=== PATIENT | male | born 1955 | race Caucasian/White ===

== ENCOUNTER 2017-02-01 23:40 | Inpatient (IN) | payer MEDICAID ==
[~2017-02-01] VITALS: Ht 177.8 cm; Wt 69.4 kg
[~2017-02-01 23:40] MED LIST: INSU100V19
[2017-02-01] MEDS ORDERED: SODIUM CHLORIDE 0.9% 1L BAG IV* STA (23:49)
--- NOTE | 2017-02-01 23:49 | ERD ---
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 The glucose was high in the emergency department glucometer. The EMS he has not been taking medication for a year and a half; he had history of diabetes mellitus According to MR when he was admitted in 2011, history of diabetes mellitus, dyslipidemia, hypertension, chronic kidney disease, CAD ROS All systems reviewed and are negative except as per history of present illness. Medications Home Meds Discontinued Reported Medications Insulin Glargine,Hum.rec.anlog (Lantus) 100 U/Ml Vial 05/23/11 Allergies Allergies: Coded Allergies: No Known Allergy (Unverified , 05/25/11) PMhx/Soc History of Surgery: No Anesthesia Reaction: No Hx Neurological Disorder: No Hx Respiratory Disorders: No Hx Cardiac Disorders: No Hx Psychiatric Problems: No Hx Miscellaneous Medical Probl: No Hx Alcohol Use: Yes (SOCIAL DRINKER ) Hx Substance Use: No Hx Tobacco Use: No Physical Exam Vitals Vital Signs Date Time Temp Pulse Resp B/P Pulse Ox O2 Delivery O2 Flow Rate FiO2 02/02/17 02:10 98.6 89 19 110/72 97 02/01/17 23:44 98.6 93 18 102/71 97 Physical Exam Const: No acute distress. Altered Head: Atraumatic. Eyes: Normal Conjunctiva. ENT: Normal External Ears, Nose and Mouth. Neck: Full range of motion. No meningismus. Resp: Clear to auscultation bilaterally. Cardio: Regular rate and rhythm. Abd: Soft, non distended, normal bowel sounds, non tender. Skin: No petechiae or rashes. Back: No midline or flank tenderness. Ext: No cyanosis, or edema. Neur: Awake. No focal deficit. Follow simple command Psych: Unable to obtain due to his condition Result Diagram: 02/02/17 0009 02/02/17 0009 Results 24 hrs Laboratory Tests Test 02/01/17 23:48 02/01/17 23:49 02/02/17 00:09 02/02/17 01:48 Bedside Glucose > 595mg/dL > 595mg/dL Blood Gas Specimen Source Blood arterial Arterial Blood Date Drawn 02/02/2017 12:10:46 AM Arterial Blood pH (Temp corrected) 6.940 Arterial Blood pCO2 (Temp correct) 12.5mmhg Arterial Blood pO2 (Temp corrected) 161.4mmHG Arterial Blood HCO3 2.6mmol/L Arterial Blood Base Excess -28.1mmol/L Arterial Blood Oxygen Saturation 98.2mmHG Ibrahima Test ACCEPTAB Arterial Blood Gas Puncture Site Right Radial Arterial Blood Carboxyhemoglobin 0.3% Arterial Blood Methemoglobin 0.4% Oxyhemoglobin Percent 97.5% Total Hemoglobin 16.8g/dl Blood Gas Temperature 37.0C Blood Gas Modality ROOM AIR FiO2 21.0% Blood Gas Critical Value Read Back Leida CHAND MD Blood Gas Notified Whom AA Blood Gas Notified Time 02/02/2017 12:22:28 AM White Blood Count 27.610^3/ul Red Blood Count 5.6410^6/ul Hemoglobin 17.1g/dl Hematocrit 60.3% Mean Corpuscular Volume 106.9fl Mean Corpuscular Hemoglobin 30.3pg Mean Corpuscular Hemoglobin Concent 28.4g/dl Red Cell Distribution Width 12.3% Platelet Count 46208^3/UL Mean Platelet Volume 11.8fl Neutrophils % 81.0% Lymphocytes % 8.5% Monocytes % 5.4% Eosinophils % 0.1% Basophils % 0.8% Nucleated Red Blood Cells % 0.0/100WBC Neutrophils # 22.410^3/ul Lymphocytes # 2.310^3/ul Monocytes # 1.510^3/ul Eosinophils # 0.010^3/ul Basophils # 0.210^3/ul Nucleated Red Blood Cells # 0.010^3/ul Pathologist Review (Hematology) YES Prothrombin Time 16.5Sec Prothrombin Time Ratio 1.3 INR International Normalized Ratio 1.31 Activated Partial Thromboplast Time 42.2Sec Sodium Level 138mmol/L Potassium Level 4.5mmol/L Chloride Level 92mmol/L Carbon Dioxide Level < 5mmol/L Anion Gap 46 Blood Urea Nitrogen 39mg/dl Creatinine 2.52mg/dl Glucose Level 1035mg/dl Lactic Acid Level 6.5mmol/L Calcium Level 9.2mg/dl Total Bilirubin 0.4mg/dl Direct Bilirubin 0.00mg/dl Indirect Bilirubin 0.4mg/dl Aspartate Amino Transf (AST/SGOT) 56IU/L Alanine Aminotransferase (ALT/SGPT) 71IU/L Alkaline Phosphatase 155IU/L Troponin I 0.208ng/ml Total Protein 7.9g/dl Albumin 4.2g/dl Globulin 3.70g/dl Albumin/Globulin Ratio 1.13 Test 02/02/17 02:54 02/02/17 03:38 Bedside Glucose > 595mg/dL Lactic Acid Level 3.2mmol/L Current Medications Medications (Trade) Dose Ordered Sig/Sergey Route PRN Reason Start Time Stop Time Status Last Admin Dose Admin Sodium Chloride 2020 ml 2,020 ml BOLUS OVER 2 HOURS STAT IV* 02/01/17 23:49 02/01/17 23:50 DC 02/02/17 00:06 Insulin Human Regular/Sodium Chloride (Novolin-R/NS) 100 ml @ 0 mls/hr TITRATE STAT IV 02/02/17 00:25 02/02/17 00:26 DC 02/02/17 02:11 Sodium Bicarbonate 50 ml 50 ml ONCE STAT IV 02/02/17 00:25 02/02/17 00:27 DC 02/02/17 03:39 Vancomycin HCl 250 ml @ 125 mls/hr ONCE IVPB 02/02/17 02:00 02/02/17 03:59 DC 02/02/17 02:00 Meropenem/Sodium Chloride (Merrem 500mg/50 ml(Pmx)) 50 ml @ 100 mls/hr ONCE STAT IVPB 02/02/17 02:00 02/02/17 02:29 DC 02/02/17 02:23 Ondansetron HCl (Zofran Inj) 4 mg ONCE ONCE IV 02/02/17 02:51 02/02/17 02:52 DC 02/02/17 03:22 Ondansetron HCl 4 mg 4 mg STK-MED ONCE .ROUTE 02/02/17 02:50 02/02/17 02:51 DC Sodium Chloride (NS) 1,000 ml @ 1,000 mls/hr Q1H ONCE IV 02/02/17 04:30 02/02/17 05:29 DC 02/02/17 04:21 Procedures/[place] [id number] Radiology Main Line: [phone] DIAGNOSTIC IMAGING REPORT Patient: BETHANIE CLARK : 1955 Age: 61 Sex: M MR #: [id number] DOS: 02/01/17 2349 Ordering MD: JER CHAND MD Location: E/R Room/Bed: PROCEDURE: XR Chest. CLINICAL INDICATION: Possible sepsis. TECHNIQUE: Single frontal view of the chest. COMPARISON: None. FINDINGS: Cardiomegaly. Atherosclerotic calcifications in the thoracic aorta. The lungs are clear. No signs of pleural fluid or pneumothorax are seen. The osseous structures and soft tissues are unremarkable. IMPRESSION: No evidence for active cardiopulmonary disease. RPTAT: [facility] Physician Christal Date Time Electronically viewed and signed by Physician Christal on 02/02/2017 02:52 RS/ CC: JER CHAND MD [place] [address] Radiology Main Line: [phone] DIAGNOSTIC IMAGING REPORT Patient: BETHANIE CLARK : 1955 Age: 61 Sex: M MR #: [id number] DOS: 02/01/17 2349 Ordering MD: JER CHAND MD Location: E/R Room/Bed: PROCEDURE: CT brain without contrast. CLINICAL INDICATION: Altered mental status. TECHNIQUE: CT scan of the brain was performed on a multi-detector high- resolution CT scanner. Contiguous axial images were obtained from the skull base to the vertex without intravenous contrast. Coronal and sagittal reformatted images were also obtained. Images were reviewed on the PACS workstation. DICOM images are available. One or more of the following dose reduction techniques were used: - Automated exposure control. - Adjustment of the mA and/or kV according to patient size. - Use of iterative reconstruction technique. Exam CTD/vol = 40.63 mGy. Total exam DLP = 990.31 mGy-cm. COMPARISON: None. FINDINGS: The ventricles and cortical sulci are prominent consistent with mild age related volume loss. There are no areas of abnormal attenuation within the brain parenchyma. There is no mass effect or midline shift. There is no intracranial hemorrhage or abnormal extra-axial collection. There are atherosclerotic calcifications within bilateral distal internal carotid arteries. The calvarium is intact. There is no evidence of fracture. Visualized paranasal sinuses and mastoid air cells are clear. IMPRESSION: No acute intracranial abnormality identified. Mild age related volume loss. Cerebral atherosclerosis. .Jose Carlos Roman MD, Date Time Electronically viewed and signed by .Jose Carlos Roman MD, MD on 02/02/2017 03:17 .T/ CC: JER CHAND MD EKG: Read by emergency physician Rate/Rhythm: Normal Sinus Rhythm 94 beats/min QRS, ST, T-waves: No ST elevation, no T inversion, prolong QT Impression: Abnormal EKG MEDICAL MAKING DECISION: The patient is a 61-year-old male, presenting with acute DKA, acute encephalopathy, acute septic shock, acute troponin elevation, acute on chronic kidney disease. He was treated with normosaline 30 mL/kg IV, vancomycin IV, meropenem IV for acute severe sepsis, 1 L normal saline and insulin drip at 0.1 U/kg/h and 1 amp of sodium bicarb IV for acute DKA.. Elevated trop is most likely due to acute on chronic kidney dz and acute septic shock. The differential diagnoses for acute elevated troponin considered include but are not limited to acute coronary syndrome, acute myocardial infarction, pericarditis, pulmonary embolism, aortic dissection, pneumonia, pleural effusion , pneumothorax, GERD, chest wall pain. The differential diagnoses for acute encephalopathy considered include but are not limited to medication non-compliance, alcohol intoxication or withdrawal, drug intoxication or withdrawal, endocrine disorder, trauma, CVA, tumor, metabolic encephalopathy, septic encephalopathy. Admit MDM: Patient's infectious symptoms have not stabilized and the patient is at risk of rapid decompensation. The patient will be admitted for careful hydration, antibiotic therapy, and infectious source control. Severe Sepsis criteria: Infectious source: unknown End organ damage indicated by: Lactate > 2.0 mmol/L Sepsis Management: Time of recognition of severe sepsis/septic shock: 2 am Within 3 hours of recognition: Blood cultures x 2 before broad-spectrum antibiotics: Yes 30 ml/kg NS bolus completed Initial lactate 6.5 Repeat lactate not indicated as initial lactate < 2.0 Septic Shock Assessment: Any lactic acid > 4.0 yes Persistent hypotension (SBP < 90 or 40 mmHg drop, MAP < 65) despite 30 mL/kg IV fluid bolusno Volume Re-assessment for Septic Shock (post 30 ml/kg bolus): Temp98.6, BP110/72, HR89, RR19, Pox97% Heart regular rate & rhythm Lungs no crackles Skin Warm & dry Cap Refill less than 2 seconds Peripheral pulses radially present Persistent Hypotension Treatment: Comfort care no Central line na Vasopressor started na I considered further perfusion assessment with CVP measurement, SCVO2, bedside ultrasound volume assessment, passive leg raise, trial of further fluid bolus. And proceeded withIVF Critical Care: Critical care time 35 minutes excluding billable procedures Emergent fluid management while maintaining close respiratory support. Provision of immediate and broad-spectrum antibiotic therapy. Simultaneous assessment for possible sources in order to direct targeted therapy. Consideration for invasive and chemical support to prevent cardiopulmonary collapse. Departure Diagnosis: Primary Impression: DKA (diabetic ketoacidoses) Additional Impressions: Septic shock Encephalopathy acute Elevated troponin Acute on chronic kidney failure Abnormal LFTs Condition: Critical Comments I discussed the findings with the patient. I discussed the patient with the hospitalist Dr. Willis who was made aware of the lab, the treatment, the patient condition. The patient is admitted to ICU at 4:20 am Disclaimer: Inadvertent spelling and grammatical errors are likely due to EHR/ dictation software use and do not reflect on the overall quality of patient care. Also, please note that the electronic time recorded on this note does not necessarily reflect the actual time of the patient encounter. JER CHAND MD Feb 01, 2017 23:48
[2017-02-02] MEDS ORDERED: INSULIN HUMAN REGULAR 100 UNIT in SOD CHLORIDE 0.9% 99 ML IV STA (00:25)
[2017-02-02] MEDS ORDERED: NA BICARBONATE 8.4% 50 ML SYG IV STA (00:25)
[2017-02-02 00:45] LABS: Allen Test ACCEPTAB; Arterial Base Excess -28.1 mmol/L (-3.0-3); Arterial COHb 0.3 % (0.0-3.0); Arterial Fraction of Oxyhgb 97.5 % (93.0-99.0); Arterial HCO3 2.6 mmol/L (22.0-26.0); Arterial MetHb 0.4 % (0.0-1.5); Arterial Total Hemglobin 16.8 g/dl (12.0-18.0); MODE ROOM AIR
[2017-02-02 00:59] LABS: INR 1.31; PROTIME 16.5 Sec (11.9-14.9); PT RATIO 1.3
[2017-02-02 01:00] LABS: PARTIAL THROMBOPLASTIN TIME 42.2 Sec (25.0-35.0)
[2017-02-02 01:40] LABS: ABNORMAL IP MESSAGE 1; BASOPHIL # 0.2 10^3/ul (0.0-0.1); BASOPHILS % 0.8 % (0.0-2.0); EOSINOPHILS % 0.1 % (0.0-7.0); HEMATOCRIT 60.3 % (42.0-52.0); HEMOGLOBIN 17.1 g/dl (14.0-18.0); LYMPHOCYTES # 2.3 10^3/ul (0.8-2.9); LYMPHOCYTES % 8.5 % (15.0-51.0); MEAN CORPUSCULAR HEMOGLOBIN 30.3 pg (29.0-33.0); MEAN CORPUSCULAR HGB CONC 28.4 g/dl (32.0-37.0); MEAN CORPUSCULAR VOLUME 106.9 fl (82.0-101.0); MEAN PLATELET VOLUME 11.8 fl (7.4-10.4); MONOCYTE # 1.5 10^3/ul (0.3-0.9); MONOCYTES % 5.4 % (0.0-11.0); NEUTROPHIL # 22.4 10^3/ul (1.6-7.5); PLATELET COUNT 273 10^3/UL (140-415); POSITIVE DIFF @See below; RED BLOOD COUNT 5.64 10^6/ul (4.70-6.10); RED CELL DISTRIBUTION WIDTH 12.3 % (11.5-14.5); WHITE BLOOD COUNT 27.6 10^3/ul (4.8-10.8)
[2017-02-02 01:47] LABS: PATH REVIEW? YES
[2017-02-02] MEDS ORDERED: MEROPENEM 500MG/50 ML (PMX) 50 ML IVPB STA (02:00)
[2017-02-02] MEDS ORDERED: VANCOMYCIN 1 GM (PMX) 250 ML IVPB SCH (02:00)
[2017-02-02 02:06] LABS: ALANINE AMINOTRANSFERASE 71 IU/L (13-69); ALBUMIN 4.2 g/dl (3.3-4.9); ALBUMIN/GLOBULIN RATIO 1.13; ALKALINE PHOSPHATASE 155 IU/L (42-121); ASPARTATE AMINO TRANSFERASE 56 IU/L (15-46); BILIRUBIN,INDIRECT 0.4 mg/dl (0-1.1); BILIRUBIN,TOTAL 0.4 mg/dl (0.2-1.3); BLOOD UREA NITROGEN 39 mg/dl (7-20); CALCIUM 9.2 mg/dl (8.4-10.2); CHLORIDE 92 mmol/L (97-110); POTASSIUM 4.5 mmol/L (3.5-5.1); SODIUM 138 mmol/L (135-144); TOTAL PROTEIN 7.9 g/dl (6.1-8.1)
[2017-02-02] MEDS ORDERED: ONDANSETRON 4 MG INJ ONE (02:50)
[2017-02-02 02:51] LABS: ANION GAP 46 (8-16); CARBON DIOXIDE < 5 mmol/L (21-31)
[2017-02-02] MEDS ORDERED: ONDANSETRON 4 MG INJ IV ONE (02:51)
--- NOTE | 2017-02-02 02:53 | RADRPT ---
PROCEDURE: XR Chest. CLINICAL INDICATION: Possible sepsis. TECHNIQUE: Single frontal view of the chest. COMPARISON: None. FINDINGS: Cardiomegaly. Atherosclerotic calcifications in the thoracic aorta. The lungs are clear. No signs of pleural fluid or pneumothorax are seen. The osseous structures and soft tissues are unremarkable. IMPRESSION: No evidence for active cardiopulmonary disease. RPTAT: [facility] Physician Christal Date Time Electronically viewed and signed by Physician Christal on 02/02/2017 02:52 RS/
--- NOTE | 2017-02-02 03:18 | RADRPT ---
PROCEDURE: CT brain without contrast. CLINICAL INDICATION: Altered mental status. TECHNIQUE: CT scan of the brain was performed on a multi-detector high-resolution CT scanner. Co ntiguous axial images were obtained from the skull base to the vertex without intravenous contrast. Coronal and sagittal reformatted images were also obtained. Images were reviewed on the PACS works [employer]. DICOM images are available. One or more of the following dose reduction techniques were used: - Automated exposure control. - Adjustment of the mA and/or kV according to patient size. - Use of iterative reconstruction technique. Exam CTD/vol = 40.63 mGy. Total exam DLP = 990.31 mGy-cm. COMPARISON: None. FINDINGS: The ventricles and cortical sulci are prominent consistent with mild age related volume loss. There are no areas of abnormal attenuation within the brain parenchyma. There is no mass effect or midli ne shift. There is no intracranial hemorrhage or abnormal extra-axial collection. There are atheros clerotic calcifications within bilateral distal internal carotid arteries. The calvarium is intact. There is no evidence of fracture. Visualized paranasal sinuses and mastoi d air cells are clear. IMPRESSION: No acute intracranial abnormality identified. Mild age related volume loss. Cerebral atherosclerosis. .Jose Carlos Roman MD, Date Time Electronically viewed and signed by .Jose Carlos Roman MD, MD on 02/02/2017 03:17 .T/
[2017-02-02 04:14] LABS: CREATININE 2.52 mg/dl (0.61-1.24)
[2017-02-02] MEDS ORDERED: SOD CHLORIDE 0.9% 1,000 ML IV ONE (04:30)
[2017-02-02 04:33] LABS: GLUCOSE 1035 mg/dl (70-220); TROPONIN-I 0.208 ng/ml (0.00-0.12)
[2017-02-02] MEDS ORDERED: SOD CHLORIDE 0.9% 1,000 ML IV SCH (07:16)
[2017-02-02] MEDS: ACCU-CHEK XX SCH ×17 (07:30→23:42)
[2017-02-02] MEDS ORDERED: ONDANSETRON 4 MG INJ IV PRN (07:30)
[2017-02-02] MEDS ORDERED: DEXTROSE 50% 50 ML SYRINGE IV PRN ×2 (07:30)
[2017-02-02] MEDS ORDERED: morphine 2 MG INJ IV PRN (07:30)
--- NOTE | 2017-02-02 07:34 | HP ---
Date/Time of Note Date/Time of Note DATE: 02/02/17 TIME: 07:24 Assessment/Plan VTE Prophylaxis VTE Prophylaxis Intervention: heparin Assessment/Plan Assessment/Plan 1. DKA -Continue insulin was DKA protocol -Admit to ICU -IV fluid and electrolytes replacement as needed -Endocrine consult 2. Presumed acute kidney injury -Continue IV fluids -Obtain renal ultrasound, urine electrolytes and nephrology consult 3. Severe anion gap metabolic acidosis See #1 and #2- 4. SIRS, with leukocytosis and tachycardia: -Chest x-ray is negative. Urinalysis pending -Obtain urine culture and blood culture -IV antibiotic 5. Positive troponin -Likely demand ischemia from DKA, and 2/2 possible underlying sepsis -Trend troponin -2D echo -Cardiology consult -Supplemental oxygen, aspirin with as needed nitro morphine. Blood pressure is on the lower side to allow beta-collette and given abnormal LFTs, no statin at this time 6. Elevated transaminases -Obtain RUQ ultrasound HPI/ROS Admit Date/Time Admit Date/Time Hx of Present Illness This is a 61-year-old male with a history of insulin-dependent diabetes who presented to the ER for generalized weakness and altered mentation. Symptoms have been progressively getting worse over the past several days. Patient lives with his brother who called to have the patient brought to the ER. Patient is somehow lethargic but is able to provide history slowly. He said after he got laid off from work a year and half ago he was not able to obtain his medications because of insurance reason. As a result, he has not been taking any diabetic medication for a year and half. When he presented to the ER, he was even in severe DKA. His blood glucose was over thousand, bicarb < 5, anion gap 46, BUN 39, creatinine 2.52, WBC 27.6 and elevated transaminases. His first troponin was elevated at 0.208. EKG without ST elevation or depression. Patient has been started on a DKA protocol and awaiting admission to ICU. PMH/Family/Social Social History Smoking Status: Unknown if ever smoked Exam/Review of Systems Vital Signs Vitals Vital Signs Date Time Temp Pulse Resp B/P Pulse Ox O2 Delivery O2 Flow Rate FiO2 02/02/17 06:42 Nasal Cannula 2 02/02/17 06:00 98.9 110 25 94/48 98 Exam Constitutional: other (Appears tired. Speaking slowly.) Head: atraumatic, normocephalic Eyes: EOMI, PERRL Respiratory: clear to auscultation, normal air movement Cardiovascular: other (Tachycardic with regular rhythm) Gastrointestinal: non-tender, soft Extremities: normal pulses Labs Result Diagram: 02/02/17802/02/178 Medications Medications Current Medications Ondansetron HCl (Zofran Inj) 4 mg Q6H PRN IV NAUSEA AND/OR VOMITING; Start at 07:30; Status UNV Morphine Sulfate (morphine) 2 mg Q4H PRN IV PAIN LEVEL 7-10; Start 02/02/17 at 07:30; Status UNV Famotidine (Pepcid Iv) 20 mg Q12 IV ; Start 02/02/17 at 09:00; Status UNV Dextrose (D50w Syringe) 50 ml Q15M PRN IV For BS 50 or less; Start 02/02/17 at 07:30; Status UNV Dextrose 25 ml 25 ml Q15M PRN IV BS between 50-70; Start 02/02/17 at 07:30; Status UNV Sodium Chloride 1,000 ml @ 1,000 mls/hr Q1H IV ; Start 02/02/17 at 07:16; Stop 02/02/17 at 08:15; Status UNV Lactated Ringer's 1,000 ml @ 1,000 mls/hr Q1H IV ; Start 02/02/17 at 08:16; Stop 02/02/17 at 09:15; Status UNV Potassium Chloride/Sodium Chloride (KCl/NS) 1,010 ml @ 500 mls/hr Q2H2M IV ; Start 02/02/17 at 09:16; Stop 02/02/17 at 11:15; Status UNV Diagnostic Test (Pha) (Accu-Chek) 1 ea Q1H XX ; Start 02/02/17 at 07:30; Status UNV Aspirin (Halfprin) 81 mg DAILY PO ; Start 02/02/17 at 09:00; Status UNV Atorvastatin Calcium (Lipitor) 40 mg QHS PO ; Start 02/02/17 at 21:00; Status UNV MARA MENDES MD Feb 02, 2017 07:34
[2017-02-02] MEDS ORDERED: SOD CHLORIDE 0.9% 1,000 ML IV STA (07:53)
[2017-02-02] MEDS ORDERED: LACTATED RINGER'S 1,000 ML IV SCH (08:16)
[2017-02-02] MEDS ORDERED: POTASSIUM CHLORIDE 20 MEQ in SOD CHLORIDE 0.9% 1,000 ML IV SCH (09:16)
[2017-02-02 09:39] LABS: BASOPHILS % 0.3 % (0.0-2.0); HEMATOCRIT 43.9 % (42.0-52.0); HEMOGLOBIN 14.2 g/dl (14.0-18.0); LYMPHOCYTES # 1.6 10^3/ul (0.8-2.9); LYMPHOCYTES % 13.9 % (15.0-51.0); MEAN CORPUSCULAR HGB CONC 32.3 g/dl (32.0-37.0); MEAN CORPUSCULAR VOLUME 92.6 fl (82.0-101.0); MONOCYTE # 0.1 10^3/ul (0.3-0.9); NEUTROPHIL # 9.6 10^3/ul (1.6-7.5); NEUTROPHILS % 82.4 % (39.0-77.0); PLATELET COUNT 190 10^3/UL (140-415); RED BLOOD COUNT 4.74 10^6/ul (4.70-6.10); RED CELL DISTRIBUTION WIDTH 12.1 % (11.5-14.5); WHITE BLOOD COUNT 11.6 10^3/ul (4.8-10.8)
[2017-02-02] MEDS: CEFEPIME 1GM/50 ML (PMX) 50 ML IVPB SCH (09:45)
[2017-02-02 10:00] LABS: CHOL/HDL RATIO 7.7 RATIO
[2017-02-02 10:09] LABS: ALBUMIN 3.1 g/dl (3.3-4.9); ALBUMIN/GLOBULIN RATIO 1.06; BILIRUBIN,INDIRECT 0.6 mg/dl (0-1.1); BILIRUBIN,TOTAL 0.6 mg/dl (0.2-1.3); CALCIUM 8.4 mg/dl (8.4-10.2); CREATININE 2.08 mg/dl (0.61-1.24); MAGNESIUM 2.4 mg/dl (1.7-2.5); PHOSPHORUS 3.1 mg/dl (2.5-4.9); POTASSIUM 3.2 mmol/L (3.5-5.1)
[2017-02-02 10:15] LABS: CK-MB 4.72 ng/ml (0.0-2.4); TROPONIN-I 0.257 ng/ml (0.00-0.12)
[2017-02-02] MEDS: FAMOTIDINE 20 MG INJ IV SCH (10:43)
[2017-02-02] MEDS: ALBUTEROL/IPRATROPIUM (NEB) 3 ML AMP NEB SCH ×5 (11:35→21:45)
[2017-02-02] MEDS: ASPIRIN (EC) 81 MG TAB PO SCH (13:18)
[2017-02-02 14:09] LABS: CALCIUM 7.6 mg/dl (8.4-10.2); CREATININE 1.43 mg/dl (0.61-1.24)
--- NOTE | 2017-02-02 14:12 | RADRPT ---
Echocardiogram Report Patient Name: BETHANIE CLARK Gender: Male Date: 1955 Study Date: 02-Feb-2017 Wood Room Hand: Isela RUST Location: [facility] Ref. Physician: MARA MENDES Quality: Adequate Procedures: Transthoracic echocardiogram with complete 2D, M-Mode, and doppler examination. Indications: Positive Troponin. 2D/M Mode Doppler Measurement Value Normal Ranges Measurement Value Normal Ranges LVIDd 2D 3.0 3.5 - 5.6 cm AV Peak Jose Antonio 1.2 m/sec LVIDs 2D 2.4 2.1 - 4.1 cm AV Peak PG 6.0 mmHg FS 2D 20.1 % LVOT Peak Jose Antonio 1.0 m/sec LVPWd 2D 1.3 0.6 - 1.1 cm LVOT Peak PG 4.0 mmHg IVSd 2D 1.3 0.6 - 1.1 cm MV E Peak Jose Antonio 1.1 m/sec IVS/LVPW 2D 1.0 MV Decel Time 106 msec AoR Diam 2D 2.8 2.0 - 3.7 cm TR Peak Jose Antonio 1.9 m/sec LA/Ao 2D 1 0 - 1 TR Peak PG 15.0 mmHg EDV 2D 26.5 cm3 RVSP 30.0 mmHg ESV 2D 13.5 cm3 LA Dimen 2D 3.6 2.3 - 4.0 cm Findings Left Ventricle: Lower limits of normal systolic function. Normal left ventricular cavity size. Mild concentric left ventricular hypertrophy. Ejection fraction is visually estimated at 50 %. Abnormal Diastolic Function. Right Ventricle: Normal right ventricular size. Normal right ventricular systolic function. Left Atrium: The left atrium is normal in size. Right Atrium: The right atrium is normal in size. Mitral Valve: Mild mitral leaflet calcification. Mild mitral annular calcification. Trace mitral regurgitation. Aortic Valve: No significant aortic stenosis. Aortic cusps appear mildly calcified. Trace aortic valve regurgitation. Tricuspid Valve: Normal appearance and function of the tricuspid valve with trace physiologic regurgitation. Estimated peak PA systolic pressure 30 mmHg. Pulmonic Valve: Pulmonic valve not well visualized. There is trace pulmonic regurgitation. Pericardium: Normal pericardium with no significant pericardial effusion. Aorta: Normal aortic root. IVC: Dilated IVC without respiratory collapse consistent with elevated right atrial pressure. Conclusions 1.Lower limits of normal systolic function. Normal left ventricular cavity size. Mild concentric left ventricular hypertrophy. Ejection fraction is visually estimated at 50 %. Abnormal Diastolic Function. 2.Normal right ventricular size. Normal right ventricular systolic function. 3.The left atrium is normal in size. 4.The right atrium is normal in size. 5.No significant valvular stenosis or regurgitation seen. 6.Normal pericardium with no significant pericardial effusion. Electronically Signed By: Jose Miguel Ridley 02-Feb-2017 14:10:57 -0800 Patient Name: BETHANIE CLARK Study Date: 02-Feb-2017 [id number]
[2017-02-02 14:18] LABS: POTASSIUM 2.8 mmol/L (3.5-5.1)
[2017-02-02 14:30] VITALS: TEMP 98.7
--- NOTE | 2017-02-02 15:22 | PN ---
Date/Time of Note Date/Time of Note DATE: 02/02/17 TIME: 15:17 Assessment/Plan VTE Prophylaxis VTE Prophylaxis Intervention: heparin Assessment/Plan Chief Complaint/Hosp Course S: Patient still on insulin drip, somewhat lethargic, but sugars have improved, in the 250-300 range now. O: VS (see below) PE: Constitutional: Lying in bed, lethargic, no acute distress Head: atraumatic, normocephalic Eyes: EOMI, PERRL Respiratory: clear to auscultation, normal air movement Cardiovascular: other (Tachycardic with regular rhythm) Gastrointestinal: non-tender, soft Extremities: normal pulses Assessment/Plan: 61-year-old male presenting with: 1. DKA -sugars down to the 250-300 range. Still with slightly elevated anion gap, on IV fluids and IV insulin -Continue insulin with DKA protocol, ICU -IV fluid and electrolytes replacement as needed -Consider endocrine consult 2. Presumed acute kidney injury -slowly improving. -Continue IV fluids -Follow-up renal ultrasound, urine electrolytes and nephrology consult 3. Severe anion gap metabolic acidosis See #1 and #2- -resolving now, continue to monitor BMP, aggressive IV fluid rehydration 4. SIRS, with leukocytosis and tachycardia: Possibly secondary to infection versus DKA reactive stay -Chest x-ray is negative. Urinalysis pending -Follow-up urine culture and blood culture -IV antibiotic for now until we get negative cultures back 5. Positive troponin -Likely demand ischemia from DKA, and 2/2 possible underlying sepsis -Trend troponin -Follow-up 2D echo -Consider cardiology consult -Supplemental oxygen, aspirin with as needed nitro morphine. Blood pressure is on the lower side to allow beta-collette and given abnormal LFTs, no statin at this time 6. Elevated transaminases -Follow-up RUQ ultrasound Critical care time spent on patient care today equals 45 minutes. Problems: Exam/Review of Systems Vital Signs Vitals Vital Signs Date Time Temp Pulse Resp B/P Pulse Ox O2 Delivery O2 Flow Rate FiO2 02/02/17 14:30 98.7 131 20 100/69 98 Room Air 02/02/17 13:43 21 02/02/17 06:42 2 Results Result Diagram: 02/02/17 0902 02/02/17 1340 Results 24 hrs Laboratory Tests Test 02/01/17 23:48 02/01/17 23:49 02/02/17 00:09 02/02/17 01:48 Bedside Glucose > 595 *H > 595 *H Blood Gas Specimen Source Blood arterial Arterial Blood Date Drawn 02/02/2017 12:10:46 AM Arterial Blood pH (Temp corrected) 6.940 *L Arterial Blood pCO2 (Temp correct) 12.5 L Arterial Blood pO2 (Temp corrected) 161.4 H Arterial Blood HCO3 2.6 *L Arterial Blood Base Excess -28.1 L Arterial Blood Oxygen Saturation 98.2 H Ibrahima Test ACCEPTAB Arterial Blood Gas Puncture Site Right Radial Arterial Blood Carboxyhemoglobin 0.3 Arterial Blood Methemoglobin 0.4 Oxyhemoglobin Percent 97.5 Total Hemoglobin 16.8 Blood Gas Temperature 37.0 Blood Gas Modality ROOM AIR FiO2 21.0 Blood Gas Critical Value Read Back Leida CHAND MD Blood Gas Notified Whom AA Blood Gas Notified Time 02/02/2017 12:22:28 AM White Blood Count 27.6 H Red Blood Count 5.64 Hemoglobin 17.1 Hematocrit 60.3 H Mean Corpuscular Volume 106.9 H Mean Corpuscular Hemoglobin 30.3 Mean Corpuscular Hemoglobin Concent 28.4 L Red Cell Distribution Width 12.3 Platelet Count 273 Mean Platelet Volume 11.8 H Neutrophils % 81.0 H Lymphocytes % 8.5 L Monocytes % 5.4 Eosinophils % 0.1 Basophils % 0.8 Nucleated Red Blood Cells % 0.0 Neutrophils # 22.4 H Lymphocytes # 2.3 Monocytes # 1.5 H Eosinophils # 0.0 Basophils # 0.2 H Nucleated Red Blood Cells # 0.0 Pathologist Review (Hematology) YES Prothrombin Time 16.5 H Prothrombin Time Ratio 1.3 INR International Normalized Ratio 1.31 Activated Partial Thromboplast Time 42.2 H Sodium Level 138 Potassium Level 4.5 Chloride Level 92 L Carbon Dioxide Level < 5 *L Anion Gap 46 H Blood Urea Nitrogen 39 H Creatinine 2.52 H Glucose Level 1035 *H Lactic Acid Level 6.5 *H Calcium Level 9.2 Total Bilirubin 0.4 Direct Bilirubin 0.00 Indirect Bilirubin 0.4 Aspartate Amino Transf (AST/SGOT) 56 H Alanine Aminotransferase (ALT/SGPT) 71 H Alkaline Phosphatase 155 H Troponin I 0.208 *H Total Protein 7.9 Albumin 4.2 Globulin 3.70 H Albumin/Globulin Ratio 1.13 Test 02/02/17 02:54 02/02/17 03:38 02/02/17 06:32 02/02/17 07:00 Bedside Glucose > 595 *H > 595 *H Lactic Acid Level 3.2 *H 3.8 *H Test 02/02/17 07:51 02/02/17 08:40 02/02/17 09:01 02/02/17 09:02 Bedside Glucose > 595 *H > 595 *H Creatine Kinase 141 Creatine Kinase Index 3.3 Creatinine Kinase MB (Mass) 4.72 H Troponin I 0.257 *H Thyroid Stimulating Hormone (TSH) 0.471 White Blood Count 11.6 #H Red Blood Count 4.74 Hemoglobin 14.2 Hematocrit 43.9 # Mean Corpuscular Volume 92.6 Mean Corpuscular Hemoglobin 30.0 Mean Corpuscular Hemoglobin Concent 32.3 Red Cell Distribution Width 12.1 Platelet Count 190 # Mean Platelet Volume 11.0 H Neutrophils % 82.4 H Lymphocytes % 13.9 L Monocytes % 1.0 Eosinophils % 0.0 Basophils % 0.3 Nucleated Red Blood Cells % 0.0 Neutrophils # 9.6 H Lymphocytes # 1.6 Monocytes # 0.1 L Eosinophils # 0.0 Basophils # 0.0 Nucleated Red Blood Cells # 0.0 Sodium Level 147 H Potassium Level 3.2 L Chloride Level 111 #H Carbon Dioxide Level 9 *L Anion Gap 30 #H Blood Urea Nitrogen 44 H Creatinine 2.08 H Glucose Level 619 #*H Fasting Glucose 619 *H Hemoglobin A1c 13.7 H Calcium Level 8.4 Phosphorus Level 3.1 Magnesium Level 2.4 Total Bilirubin 0.6 Direct Bilirubin 0.00 Indirect Bilirubin 0.6 Aspartate Amino Transf (AST/SGOT) 47 H Alanine Aminotransferase (ALT/SGPT) 67 Alkaline Phosphatase 106 Total Protein 6.0 #L Albumin 3.1 #L Globulin 2.90 Albumin/Globulin Ratio 1.06 Triglycerides Level 409 H Cholesterol Level 288 H LDL Cholesterol, Calculated 169 HDL Cholesterol 37 Cholesterol/HDL Ratio 7.7 Test 02/02/17 09:29 02/02/17 10:32 02/02/17 11:32 02/02/17 12:49 Bedside Glucose 536 *H 435 *H 395 H 224 H Test 02/02/17 13:40 02/02/17 13:43 02/02/17 14:42 Sodium Level 150 H Potassium Level 2.8 *L Chloride Level 120 H Carbon Dioxide Level 12 L Anion Gap 21 #H Blood Urea Nitrogen 38 H Creatinine 1.43 H Glucose Level 205 # Calcium Level 7.6 L Bedside Glucose 176 185 Medications Medications Current Medications Ondansetron HCl (Zofran Inj) 4 mg Q6H PRN IV NAUSEA AND/OR VOMITING; Start at 07:30 Morphine Sulfate (morphine) 2 mg Q4H PRN IV PAIN LEVEL 7-10; Start 02/02/17 at 07:30 Famotidine (Pepcid Iv) 20 mg DAILY IV Last administered on 02/02/17 10:43; Admin Dose 20 MG; Start 02/02/17 at 09:00 Dextrose (D50w Syringe) 50 ml Q15M PRN IV For BS 50 or less; Start 02/02/17 at 07:30 Dextrose (D50w Syringe) 25 ml Q15M PRN IV BS between 50-70; Start 02/02/17 at 07:30 Diagnostic Test (Pha) (Accu-Chek) 1 ea Q1H XX Last administered on 02/02/17 14:30; Admin Dose 1 EA; Start 02/02/17 at 07:30 Aspirin 81 mg 81 mg DAILY PO Last administered on 02/02/17 13:18; Admin Dose 81 MG; Start 02/02/17 at 09:00 Cefepime HCl 50 ml @ 100 mls/hr DAILY IVPB Last administered on 02/02/17 09: 45; Admin Dose 100 MLS/HR; Start 02/02/17 at 09:00 Potassium Chloride/Dextrose/ Sodium Chloride (KCl/D5-NS) 1,005 ml @ 100 mls/hr Q10H3M IV ; Start 02/02/17 at 15:30; Status MANDO HEAD Feb 02, 2017 15:22
[2017-02-02] MEDS: POTASSIUM CHLORIDE 10 MEQ in DEXTROSE 5%-0.9% NACL 1,000 ML IV SCH (16:13)
[2017-02-02 16:25] LABS: CK-MB 5.44 ng/ml (0.0-2.4); TROPONIN-I 0.337 ng/ml (0.00-0.12)
[2017-02-02 16:30] LABS: CREATININE 1.33 mg/dl (0.61-1.24); POTASSIUM 3.2 mmol/L (3.5-5.1)
[2017-02-02 17:48] LABS: ADD UMIC YES; UR ASCORBIC ACID NEGATIVE (NEGATIVE); UR BACTERIA FEW /HPF (NONE SEEN); UR BILIRUBIN (Dip) NEGATIVE (NEGATIVE); UR BLOOD (Dip) 2+ mg/dL (NEGATIVE); UR CLARITY SLIGHTLY CLOUDY (CLEAR); UR COLOR YELLOW (YELLOW); UR GLUCOSE (Dip) 3+ mg/dL (NEGATIVE); UR KETONES (Dip) 1+ mg/dL (NEGATIVE); UR LEUKOCYTE ESTERASE (Dip) NEGATIVE Leu/ul (NEGATIVE); UR NITRITE (Dip) NEGATIVE (NEGATIVE); UR RBC 2 /HPF (0-5); UR SPECIFIC GRAVITY (Dip) 1.016 (1.003-1.030); UR TOTAL PROTEIN (Dip) 1+ mg/dl (NEGATIVE); UR UROBILINOGEN (Dip) NEGATIVE (NEGATIVE)
[2017-02-02] MEDS ORDERED: ATORVASTATIN 40 MG TAB PO SCH (21:00)
[2017-02-02] MEDS: INSULIN HUMAN REGULAR 100 UNIT in SOD CHLORIDE 0.9% 99 ML IV SCH (23:42)
[2017-02-02 23:52] VITALS: BP 136/83; PULSE 132; RESP 23
[2017-02-03] VITALS (23 sets, daily range): BP systolic 106–127; BP diastolic 72–83; PULSE 87–136; RESP 9–24; Ht 177.8 cm; Wt 69.4 kg
[2017-02-03] MEDS: ALBUTEROL/IPRATROPIUM (NEB) 3 ML AMP NEB SCH ×6 (00:21→20:58)
[2017-02-03] MEDS: ACCU-CHEK XX SCH ×12 (01:04→11:31)
[2017-02-03] MEDS: POTASSIUM CHLORIDE 10 MEQ in DEXTROSE 5%-0.9% NACL 1,000 ML IV SCH (02:32)
[2017-02-03] MEDS: INSULIN HUMAN REGULAR 100 UNIT in SOD CHLORIDE 0.9% 99 ML IV SCH ×2 (02:35→06:43)
[2017-02-03 05:05] LABS: BASOPHIL # 0.1 10^3/ul (0.0-0.1); BASOPHILS % 0.3 % (0.0-2.0); EOSINOPHILS % 0.1 % (0.0-7.0); HEMATOCRIT 39.1 % (42.0-52.0); HEMOGLOBIN 13.1 g/dl (14.0-18.0); LYMPHOCYTES # 0.6 10^3/ul (0.8-2.9); LYMPHOCYTES % 4.3 % (15.0-51.0); MEAN CORPUSCULAR HEMOGLOBIN 30.1 pg (29.0-33.0); MEAN CORPUSCULAR HGB CONC 33.5 g/dl (32.0-37.0); MEAN CORPUSCULAR VOLUME 89.9 fl (82.0-101.0); MEAN PLATELET VOLUME 11.8 fl (7.4-10.4); MONOCYTE # 1.2 10^3/ul (0.3-0.9); MONOCYTES % 7.8 % (0.0-11.0); NEUTROPHIL # 12.8 10^3/ul (1.6-7.5); NEUTROPHILS % 85.5 % (39.0-77.0); PLATELET COUNT 129 10^3/UL (140-415); RED BLOOD COUNT 4.35 10^6/ul (4.70-6.10); RED CELL DISTRIBUTION WIDTH 11.9 % (11.5-14.5)
[2017-02-03 05:22] LABS: CALCIUM 8.2 mg/dl (8.4-10.2); CREATININE 1.04 mg/dl (0.61-1.24); POTASSIUM 3.6 mmol/L (3.5-5.1)
[2017-02-03] MEDS: CEFEPIME 1GM/50 ML (PMX) 50 ML IVPB SCH (09:08)
[2017-02-03] MEDS: ASPIRIN (EC) 81 MG TAB PO SCH (09:08)
[2017-02-03] MEDS: FAMOTIDINE 20 MG INJ IV SCH (09:08)
--- NOTE | 2017-02-03 11:25 | PN ---
Date/Time of Note Date/Time of Note DATE: 02/03/17 TIME: 11:22 Assessment/Plan VTE Prophylaxis VTE Prophylaxis Intervention: SCD's Lines/Catheters [facility] Mid Line Urinary Cath still in place: No Assessment/Plan Chief Complaint/Hosp Course S: Patient still on insulin drip, slightly agitated at times, sugars have improved down to the 150-180 range. Still on D5 NS as well. O: VS (see below) PE: Constitutional: Lying in bed, lethargic, no acute distress Head: atraumatic, normocephalic Eyes: EOMI, PERRL Respiratory: clear to auscultation, normal air movement Cardiovascular: other (Tachycardic with regular rhythm) Gastrointestinal: non-tender, soft Extremities: normal pulses Assessment/Plan: 61-year-old male presenting with: 1. DKA -Has essentially closed at this point, sugars are stable. Presently on IV fluids and IV insulin. A1c equals 13.7 -We will wean off the insulin drip and switch to subcu insulin, because of his hypernatremia switch his fluids to D5W -IV fluid and electrolytes replacement as needed -Consider endocrine consult 2. acute kidney injury - slowly improving. -Continue IV fluids -Follow-up renal ultrasound, urine electrolytes and nephrology consult 3. Severe anion gap metabolic acidosis -essentially resolved now See #1 and #2- continue to monitor BMP, aggressive IV fluid rehydration 4. SIRS, with leukocytosis and tachycardia: Possibly secondary to infection versus DKA reactive stay -Chest x-ray is negative. Urinalysis pending -Follow-up urine culture and blood culture -IV antibiotic for now until we get negative cultures back 5. Positive troponin -Likely demand ischemia from DKA, and 2/2 possible underlying sepsis -Trend troponin -Follow-up 2D echo -Consider cardiology consult -Supplemental oxygen, aspirin with as needed nitro morphine. Blood pressure is on the lower side to allow beta-collette and given abnormal LFTs, no statin at this time 6. Elevated transaminases -Follow-up RUQ ultrasound 7. Hypernatremia: 154 -D5W Critical care time spent on patient care today equals 45 minutes. Problems: Exam/Review of Systems Vital Signs Vitals Vital Signs Date Time Temp Pulse Resp B/P Pulse Ox O2 Delivery O2 Flow Rate FiO2 02/03/17 10:00 104 20 98 21 02/03/17 09:00 119/77 Room Air 02/03/17 08:00 98.2 02/02/17 06:42 2 Intake and Output 02/02/17 02/02/17 02/03/17 15:00 23:00 07:00 Intake Total 5320 ml 827.5 ml Output Total 800 ml 830 ml Balance 5320 ml -800 ml -2.5 ml Results Result Diagram: 02/03/17 0442 02/03/17 0442 Results 24 hrs Laboratory Tests Test 02/02/17 11:32 02/02/17 12:49 02/02/17 13:40 02/02/17 13:43 Bedside Glucose 395 H 224 H 176 Sodium Level 150 H Potassium Level 2.8 *L Chloride Level 120 H Carbon Dioxide Level 12 L Anion Gap 21 #H Blood Urea Nitrogen 38 H Creatinine 1.43 H Glucose Level 205 # Calcium Level 7.6 L Creatine Kinase 177 Creatine Kinase Index 3.1 Creatinine Kinase MB (Mass) 5.44 H Troponin I 0.337 *H Test 02/02/17 14:42 02/02/17 15:45 02/02/17 15:48 02/02/17 16:44 Bedside Glucose 185 136 115 Sodium Level 151 H Potassium Level 3.2 L Chloride Level 121 H Carbon Dioxide Level 12 L Anion Gap 21 H Blood Urea Nitrogen 37 H Creatinine 1.33 H Glucose Level 195 Calcium Level 8.0 L Test 02/02/17 17:15 02/02/17 17:51 02/02/17 18:49 02/02/17 19:30 Urine Color YELLOW Urine Clarity SLIGHTLY CLOUDY A Urine pH 5.0 Urine Specific [place] 1.016 Urine Ketones 1+ H Urine Nitrite NEGATIVE Urine Bilirubin NEGATIVE Urine Urobilinogen NEGATIVE Urine Leukocyte Esterase NEGATIVE Urine Microscopic RBC 2 Urine Microscopic WBC 1 Urine Bacteria FEW A Urine Hemoglobin 2+ H Urine Glucose 3+ H Urine Total Protein 1+ H Bedside Glucose 113 162 137 Test 02/02/17 20:30 02/02/17 21:37 02/02/17 22:33 02/02/17 23:36 Bedside Glucose 151 157 140 142 Test 02/03/17 00:41 02/03/17 01:45 02/03/17 02:29 02/03/17 03:34 Bedside Glucose 155 123 117 118 Test 02/03/17 04:42 02/03/17 04:44 02/03/17 06:01 02/03/17 06:39 White Blood Count 15.0 #H Red Blood Count 4.35 L Hemoglobin 13.1 L Hematocrit 39.1 L Mean Corpuscular Volume 89.9 Mean Corpuscular Hemoglobin 30.1 Mean Corpuscular Hemoglobin Concent 33.5 Red Cell Distribution Width 11.9 Platelet Count 129 #L Mean Platelet Volume 11.8 H Neutrophils % 85.5 H Lymphocytes % 4.3 L Monocytes % 7.8 Eosinophils % 0.1 Basophils % 0.3 Nucleated Red Blood Cells % 0.0 Neutrophils # 12.8 H Lymphocytes # 0.6 L Monocytes # 1.2 H Eosinophils # 0.0 Basophils # 0.1 Nucleated Red Blood Cells # 0.0 Sodium Level 154 H Potassium Level 3.6 Chloride Level 125 H Carbon Dioxide Level 17 L Anion Gap 16 Blood Urea Nitrogen 24 #H Creatinine 1.04 Glucose Level 139 # Calcium Level 8.2 L Phosphorus Level 2.1 #L Magnesium Level 2.0 Bedside Glucose 123 234 H 216 Test 02/03/17 07:45 02/03/17 09:43 02/03/17 10:53 Bedside Glucose 202 179 148 Medications Medications Current Medications Ondansetron HCl (Zofran Inj) 4 mg Q6H PRN IV NAUSEA AND/OR VOMITING; Start at 07:30 Morphine Sulfate (morphine) 2 mg Q4H PRN IV PAIN LEVEL 7-10; Start 02/02/17 at 07:30 Famotidine (Pepcid Iv) 20 mg DAILY IV Last administered on 02/03/17 09:08; Admin Dose 20 MG; Start 02/02/17 at 09:00 Dextrose (D50w Syringe) 50 ml Q15M PRN IV For BS 50 or less; Start 02/02/17 at 07:30 Dextrose (D50w Syringe) 25 ml Q15M PRN IV BS between 50-70; Start 02/02/17 at 07:30 Diagnostic Test (Pha) (Accu-Chek) 1 ea Q1H XX Last administered on 02/03/17 10:29; Admin Dose 1 EA; Start 02/02/17 at 07:30 Aspirin 81 mg 81 mg DAILY PO Last administered on 02/03/17 09:08; Admin Dose 81 MG; Start 02/02/17 at 09:00 Cefepime HCl 50 ml @ 100 mls/hr DAILY IVPB Last administered on 02/03/17t 09: 08; Admin Dose 100 MLS/HR; Start 02/02/17 at 09:00 Potassium Phosphate 40 meq/ Sodium Chloride 259.0909 ml @ 64.773 m... ONCE ONCE IVPB ; Start 02/03/17 at 12:00; Stop 02/03/17 at 15:59 Dextrose (D5W) 1,000 ml @ 75 mls/hr [id number] IV ; Start 02/03/17 at 11:30 Insulin Glargine (Lantus) 25 unit DAILY@08 SC ; Start 02/04/17 at 08:00; Status MANDO HEAD Feb 03, 2017 11:25
[2017-02-03] MEDS: INSULIN ASPART [NOVOLOG] 3 ML PEN SC SCH ×3 (11:30→21:01)
[2017-02-03] MEDS: DEXTROSE 5% 1,000 ML IV SCH (11:35)
[2017-02-03] MEDS ORDERED: GLUCOSE GEL 15 GRAM TUBE PO PRN ×2 (12:00)
[2017-02-03] MEDS ORDERED: DEXTROSE 50% 50 ML SYRINGE IV PRN ×2 (12:00)
[2017-02-03] MEDS ORDERED: GLUCAGON 1 MG INJ IM PRN (12:00)
[2017-02-03] MEDS ORDERED: POTASSIUM PHOSPHATE 40 MEQ in SOD CHLORIDE 0.9% 250 ML IVPB ONE (12:00)
[2017-02-03] MEDS ORDERED: GLUCOSE GEL 15 GRAM TUBE BUCCAL PRN (12:00)
[2017-02-03] MEDS: INSULIN GLARGINE [LANtus] 3 ML PEN SC SCH (12:08)
[2017-02-03 14:24] LABS: CREATININE 0.95 mg/dl (0.61-1.24)
[2017-02-04] VITALS (12 sets, daily range): BP systolic 111–137; BP diastolic 63–91; PULSE 92–101; RESP 19–20
[2017-02-04] MEDS: DEXTROSE 5% 1,000 ML IV SCH (00:50)
[2017-02-04] MEDS: ALBUTEROL/IPRATROPIUM (NEB) 3 ML AMP NEB SCH ×6 (01:41→21:42)
[2017-02-04 08:01] LABS: BASOPHILS % 0.1 % (0.0-2.0); EOSINOPHILS % 0.1 % (0.0-7.0); HEMATOCRIT 32.5 % (42.0-52.0); HEMOGLOBIN 10.9 g/dl (14.0-18.0); LYMPHOCYTES # 1.4 10^3/ul (0.8-2.9); LYMPHOCYTES % 8.1 % (15.0-51.0); MEAN CORPUSCULAR HEMOGLOBIN 30.4 pg (29.0-33.0); MEAN CORPUSCULAR HGB CONC 33.5 g/dl (32.0-37.0); MEAN CORPUSCULAR VOLUME 90.5 fl (82.0-101.0); MEAN PLATELET VOLUME 11.9 fl (7.4-10.4); MONOCYTE # 0.7 10^3/ul (0.3-0.9); MONOCYTES % 4.2 % (0.0-11.0); NEUTROPHIL # 14.6 10^3/ul (1.6-7.5); NEUTROPHILS % 85.3 % (39.0-77.0); PLATELET COUNT 133 10^3/UL (140-415); RED BLOOD COUNT 3.59 10^6/ul (4.70-6.10); RED CELL DISTRIBUTION WIDTH 13.2 % (11.5-14.5); WHITE BLOOD COUNT 17.1 10^3/ul (4.8-10.8)
[2017-02-04 08:28] LABS: CALCIUM 8.9 mg/dl (8.4-10.2); CREATININE 0.99 mg/dl (0.61-1.24); POTASSIUM 3.9 mmol/L (3.5-5.1)
[2017-02-04] MEDS: INSULIN GLARGINE [LANtus] 3 ML PEN SC SCH (08:51)
[2017-02-04] MEDS: INSULIN ASPART [NOVOLOG] 3 ML PEN SC SCH ×7 (08:52→20:57)
[2017-02-04] MEDS: FAMOTIDINE 20 MG INJ IV SCH (08:54)
[2017-02-04] MEDS: ASPIRIN (EC) 81 MG TAB PO SCH (08:54)
[2017-02-04] MEDS: CEFEPIME 1GM/50 ML (PMX) 50 ML IVPB SCH (10:27)
--- NOTE | 2017-02-04 12:33 | PN ---
Date/Time of Note Date/Time of Note DATE: 02/04/17 TIME: 12:26 Assessment/Plan VTE Prophylaxis VTE Prophylaxis Intervention: SCD's Lines/Catheters IV Catheter Type (from Nrs): Mid Line Assessment/Plan Chief Complaint/Hosp Course S: Patient off of insulin drip, out of the ICU. Sugars still in the high normal range 220- 280 range. O: VS (see below) PE: Constitutional: Lying in bed, lethargic, no acute distress Head: atraumatic, normocephalic Eyes: EOMI, PERRL Respiratory: clear to auscultation, normal air movement Cardiovascular: S1, S2 heard no rubs or gallops Gastrointestinal: non-tender, soft Extremities: normal pulses Assessment/Plan: 61-year-old male presenting with: 1. DKA -Has essentially closed at this point, sugars are stable. A1c equals 13.7 -We will increase aspart and Lantus doses, continue sliding scale insulin. -IV fluid and electrolytes replacement as needed -Consider endocrine consult 2. acute kidney injury - slowly improving. -Continue IV fluids -Follow-up renal ultrasound, urine electrolytes and nephrology consult 3. Severe anion gap metabolic acidosis -essentially resolved now See #1 and #2- continue to monitor BMP, aggressive IV fluid rehydration 4. SIRS, with leukocytosis and tachycardia: Possibly secondary to infection versus DKA-Chest x-ray is negative. -Follow-up urine culture and blood culture -IV antibiotic for now until we get negative cultures back 5. Positive troponin: Likely demand ischemia from DKA, and 2/2 possible underlying sepsis -Trend troponin -Follow-up 2D echo -Consider cardiology consult -Supplemental oxygen, aspirin with as needed nitro morphine. 6. Elevated transaminases -Follow-up RUQ ultrasound 7. Hypernatremia: 154 -> 150 -Consider free water Problems: Exam/Review of Systems Vital Signs Vitals Vital Signs Date Time Temp Pulse Resp B/P Pulse Ox O2 Delivery O2 Flow Rate FiO2 02/04/17 12:14 97 02/04/17 11:55 98.3 19 122/84 98 02/04/17 10:16 21 02/03/17 17:30 Room Air 02/02/17 06:42 2 Intake and Output 02/03/17 02/03/17 02/04/17 15:00 23:00 07:00 Intake Total 603.0 ml 250 ml 550 ml Output Total 250 ml 950 ml Balance 603.0 ml 0 ml -400 ml Results Result Diagram: 02/04/17 0715 02/04/17 0715 Results 24 hrs Laboratory Tests Test 02/03/17 12:30 02/03/17 13:51 02/03/17 17:50 02/03/17 18:54 Bedside Glucose 158 269 H 281 H Sodium Level 151 H Potassium Level 4.0 Chloride Level 124 H Carbon Dioxide Level 16 L Anion Gap 15 Blood Urea Nitrogen 19 Creatinine 0.95 Glucose Level 190 Calcium Level 8.0 L Test 02/03/17 20:43 02/04/17 02:21 02/04/17 07:15 02/04/17 08:40 Bedside Glucose 301 H 244 H 235 H White Blood Count 17.1 H Red Blood Count 3.59 L Hemoglobin 10.9 L Hematocrit 32.5 L Mean Corpuscular Volume 90.5 Mean Corpuscular Hemoglobin 30.4 Mean Corpuscular Hemoglobin Concent 33.5 Red Cell Distribution Width 13.2 Platelet Count 133 L Mean Platelet Volume 11.9 H Neutrophils % 85.3 H Lymphocytes % 8.1 L Monocytes % 4.2 Eosinophils % 0.1 Basophils % 0.1 Nucleated Red Blood Cells % 0.0 Neutrophils # 14.6 H Lymphocytes # 1.4 Monocytes # 0.7 Eosinophils # 0.0 Basophils # 0.0 Nucleated Red Blood Cells # 0.0 Sodium Level 150 H Potassium Level 3.9 Chloride Level 117 H Carbon Dioxide Level 14 L Anion Gap 23 #H Blood Urea Nitrogen 17 Creatinine 0.99 Glucose Level 243 H Calcium Level 8.9 Medications Medications Current Medications Ondansetron HCl (Zofran Inj) 4 mg Q6H PRN IV NAUSEA AND/OR VOMITING; Start at 07:30 Morphine Sulfate (morphine) 2 mg Q4H PRN IV PAIN LEVEL 7-10; Start 02/02/17 at 07:30 Famotidine (Pepcid Iv) 20 mg DAILY IV Last administered on 02/04/17 08:54; Admin Dose 20 MG; Start 02/02/17 at 09:00 Aspirin 81 mg 81 mg DAILY PO Last administered on 02/04/17 08:54; Admin Dose 81 MG; Start 02/02/17 at 09:00 Cefepime HCl (Maxipime 1gm/50 ml (Pmx)) 50 ml @ 100 mls/hr DAILY IVPB Last administered on 02/04/17t 10:27; Admin Dose 100 MLS/HR; Start 02/02/17 at 09: 00 Miscellaneous Information 1 ea NOTE XX ; Start 02/03/17 at 12:00 Glucose (Glutose) 15 gm Q15M PRN PO DECREASED GLUCOSE; Start 02/03/17 at 12:00 Glucose (Glutose) 22.5 gm Q15M PRN PO DECREASED GLUCOSE; Start 02/03/17 at 12: 00 Dextrose (D50w Syringe) 25 ml Q15M PRN IV DECREASED GLUCOSE; Start 02/03/17 at 12:00 Dextrose (D50w Syringe) 50 ml Q15M PRN IV DECREASED GLUCOSE; Start 02/03/17 at 12:00 Glucagon (Glucagen) 1 mg Q15M PRN IM DECREASED GLUCOSE; Start 02/03/17 at 12: 00 Glucose (Glutose) 15 gm Q15M PRN BUCCAL DECREASED GLUCOSE; Start 02/03/17 at 12:00 Diagnostic Test (Pha) (Accu-Chek) 1 ea 02 XX ; Start 02/04/17 at 02:30 Insulin Glargine (Lantus) 42 unit DAILY@08 SC ; Start 02/05/17 at 08:00 MANDO APPLE Feb 04, 2017 12:32
[2017-02-04] MEDS: SOD CHLORIDE 0.45% 1,000 ML IV SCH (12:47)
[2017-02-04] MEDS ORDERED: Discontinue current oral sulfonylureas (glyburide, glipizide, and/or glimepiride) prior to XX ONE (13:00)
[2017-02-04] MEDS ORDERED: HYPOGLYCEMIA PROTOCOL when Glucose is <70 mg/dL or symptomatic <90 mg/dL. XX ONE (13:00)
[2017-02-05] VITALS (11 sets, daily range): BP systolic 102–121; BP diastolic 63–73; PULSE 78–122; RESP 16–20
[2017-02-05] MEDS: SOD CHLORIDE 0.45% 1,000 ML IV SCH (01:42)
[2017-02-05] MEDS: ACCUCHECK 2 AM XX SCH (01:44)
[2017-02-05] MEDS: ACCU-CHEK XX SCH (01:44)
[2017-02-05] MEDS: ALBUTEROL/IPRATROPIUM (NEB) 3 ML AMP NEB SCH ×2 (02:36→06:12)
[2017-02-05 06:14] LABS: BASOPHILS % 0.1 % (0.0-2.0); EOSINOPHILS # 0.1 10^3/ul (0.0-0.5); EOSINOPHILS % 1.1 % (0.0-7.0); HEMATOCRIT 26.1 % (42.0-52.0); HEMOGLOBIN 8.6 g/dl (14.0-18.0); LYMPHOCYTES # 1.8 10^3/ul (0.8-2.9); MEAN CORPUSCULAR HEMOGLOBIN 30.1 pg (29.0-33.0); MEAN CORPUSCULAR VOLUME 91.3 fl (82.0-101.0); MEAN PLATELET VOLUME 11.3 fl (7.4-10.4); MONOCYTE # 0.5 10^3/ul (0.3-0.9); MONOCYTES % 4.4 % (0.0-11.0); NEUTROPHIL # 9.4 10^3/ul (1.6-7.5); NEUTROPHILS % 78.7 % (39.0-77.0); PLATELET COUNT 124 10^3/UL (140-415); RED BLOOD COUNT 2.86 10^6/ul (4.70-6.10); RED CELL DISTRIBUTION WIDTH 12.8 % (11.5-14.5)
[2017-02-05 07:00] LABS: ALBUMIN 2.7 g/dl (3.3-4.9); ALBUMIN/GLOBULIN RATIO 1.03; BILIRUBIN,INDIRECT 3.5 mg/dl (0-1.1); BILIRUBIN,TOTAL 3.5 mg/dl (0.2-1.3); CALCIUM 8.2 mg/dl (8.4-10.2); CREATININE 0.79 mg/dl (0.61-1.24); MAGNESIUM 1.8 mg/dl (1.7-2.5); PHOSPHORUS 1.8 mg/dl (2.5-4.9); POTASSIUM 3.2 mmol/L (3.5-5.1); TOTAL PROTEIN 5.3 g/dl (6.1-8.1)
[2017-02-05 07:09] LABS: CALCIUM 8.3 mg/dl (8.4-10.2); CREATININE 0.81 mg/dl (0.61-1.24); POTASSIUM 3.3 mmol/L (3.5-5.1)
[2017-02-05] MEDS: FAMOTIDINE 20 MG INJ IV SCH (08:10)
[2017-02-05] MEDS: ASPIRIN (EC) 81 MG TAB PO SCH (08:11)
[2017-02-05] MEDS: CEFEPIME 1GM/50 ML (PMX) 50 ML IVPB SCH (08:11)
[2017-02-05] MEDS: INSULIN GLARGINE [LANtus] 3 ML PEN SC SCH (08:13)
[2017-02-05] MEDS: INSULIN ASPART [NOVOLOG] 3 ML PEN SC SCH ×7 (08:15→20:40)
[2017-02-05] MEDS: IPRATROPIUM (NEB) 0.5 MG/2.5 ML AMP HHN SCH ×4 (08:24→20:58)
[2017-02-05] MEDS: LEVALBUTEROL (NEB) 0.63 MG/3 ML AMP HHN SCH ×5 (08:24→20:59)
[2017-02-05] MEDS ORDERED: POTASSIUM CHLORIDE (SR) 20 MEQ TAB PO STA (08:46)
--- NOTE | 2017-02-05 13:23 | PN ---
Date/Time of Note Date/Time of Note DATE: 02/05/17 TIME: 13:19 Assessment/Plan VTE Prophylaxis VTE Prophylaxis Intervention: SCD's Lines/Catheters IV Catheter Type (from Nrsg): [place] [facility] Assessment/Plan Assessment/Plan 61 yo M with poorly controlled DM, multiple DM related admissions (hyperglycemia ) admitted for DKA which has now resolved PLAN #DM with DKA -cont current insulin SC regimen -DM education needed #Leukocytosis: improving. urine with just yeast. blood cultures neg. -stop antibacterials #transaminitis, ADA: resolved #?NSTEMI? does not appear trops have been checked in 3 days . TTE with EF low limit of nl, +DD recheck trop -on asa. add bb, statin, acei DVT prophx DM diet cont tele pending repeat trop 5. Positive troponin: Likely demand ischemia from DKA, and 2/2 possible underlying sepsis -Trend troponin -Follow-up 2D echo -Consider cardiology consult -Supplemental oxygen, aspirin with as needed nitro morphine. Subjective 24 Hr Interval Summary Free Text/Dictation Sleeping this AM Exam/Review of Systems Vital Signs Vitals Vital Signs Date Time Temp Pulse Resp B/P Pulse Ox O2 Delivery O2 Flow Rate FiO2 02/05/17 11:54 99.0 90 19 102/66 97 02/05/17 02:36 21 02/03/17 17:30 Room Air 02/02/17 06:42 2 Intake and Output 02/04/17 02/04/17 02/05/17 15:00 23:00 07:00 Intake Total 700 ml 1550 ml Output Total 750 ml 1300 ml Balance -50 ml 250 ml Exam nad no mrg lungs clear abd soft no rashes a1c high AM BG 180s Results Result Diagram: 02/05/17 0548 02/05/17 0610 Results 24 hrs Laboratory Tests Test 02/04/17 17:31 02/04/17 20:56 02/05/17 05:48 02/05/17 06:10 Bedside Glucose 185 128 White Blood Count 12.0 #H Red Blood Count 2.86 #L Hemoglobin 8.6 #L Hematocrit 26.1 L Mean Corpuscular Volume 91.3 Mean Corpuscular Hemoglobin 30.1 Mean Corpuscular Hemoglobin Concent 33.0 Red Cell Distribution Width 12.8 Platelet Count 124 L Mean Platelet Volume 11.3 H Neutrophils % 78.7 H Lymphocytes % 15.0 Monocytes % 4.4 Eosinophils % 1.1 Basophils % 0.1 Nucleated Red Blood Cells % 0.0 Neutrophils # 9.4 H Lymphocytes # 1.8 Monocytes # 0.5 Eosinophils # 0.1 Basophils # 0.0 Nucleated Red Blood Cells # 0.0 Sodium Level 142 142 Potassium Level 3.2 L 3.3 L Chloride Level 111 H 111 H Carbon Dioxide Level 21 23 Anion Gap 13 # 11 Blood Urea Nitrogen 17 16 Creatinine 0.79 0.81 Glucose Level 188 188 Calcium Level 8.2 L 8.3 L Phosphorus Level 1.8 L Magnesium Level 1.8 Total Bilirubin 3.5 H Direct Bilirubin 0.00 Indirect Bilirubin 3.5 H Aspartate Amino Transf (AST/SGOT) 27 Alanine Aminotransferase (ALT/SGPT) 45 Alkaline Phosphatase 90 Total Protein 5.3 L Albumin 2.7 L Globulin 2.60 Albumin/Globulin Ratio 1.03 Test 02/05/17 08:02 02/05/17 12:40 Bedside Glucose 202 170 Medications Medications Current Medications Ondansetron HCl (Zofran Inj) 4 mg Q6H PRN IV NAUSEA AND/OR VOMITING; Start at 07:30 Morphine Sulfate (morphine) 2 mg Q4H PRN IV PAIN LEVEL 7-10; Start 02/02/17 at 07:30 Aspirin (Halfprin) 81 mg DAILY PO Last administered on 02/05/17t 08:11; Admin Dose 81 MG; Start 02/02/17 at 09:00 Miscellaneous Information 1 ea NOTE XX ; Start 02/03/17 at 12:00 Glucose (Glutose) 15 gm Q15M PRN PO DECREASED GLUCOSE; Start 02/03/17 at 12:00 Glucose (Glutose) 22.5 gm Q15M PRN PO DECREASED GLUCOSE; Start 02/03/17 at 12: 00 Dextrose (D50w Syringe) 25 ml Q15M PRN IV DECREASED GLUCOSE; Start 02/03/17 at 12:00 Dextrose (D50w Syringe) 50 ml Q15M PRN IV DECREASED GLUCOSE; Start 02/03/17 at 12:00 Glucagon (Glucagen) 1 mg Q15M PRN IM DECREASED GLUCOSE; Start 02/03/17 at 12: 00 Glucose (Glutose) 15 gm Q15M PRN BUCCAL DECREASED GLUCOSE; Start 02/03/17 at 12:00 Diagnostic Test (Pha) (Accu-Chek) 1 ea 02 XX ; Start 02/04/17 at 02:30 Insulin Glargine 42 unit 42 unit DAILY@08 SC Last administered on 02/05/17 08 :13; Admin Dose 42 UNIT; Start 02/05/17 at 08:00 Sodium Chloride (1/2 NS) 1,000 ml @ 75 mls/hr [id number] IV Last administered on 02/05/17 01:42; Admin Dose 75 MLS/HR; Start 02/04/17 at 12:30 Diagnostic Test (Pha) (Accu-Chek) 1 ea 02 XX ; Start 02/05/17 at 02:00 Influenza Virus Vaccine (Fluzone) 0.5 ml ONCE ONCE IM* ; Start 02/09/17 at 09: 00; Stop 02/09/17 at 09:01 RUPAL CARR MD Feb 05, 2017 13:23
[2017-02-05] MEDS: LISINOPRIL 5 MG TAB PO SCH (13:30)
[2017-02-05] MEDS: ATORVASTATIN 40 MG TAB PO SCH (20:41)
[2017-02-06 01:41] VITALS: BP 115/66; RESP 16
[2017-02-06] MEDS: ACCUCHECK 2 AM XX SCH (02:00)
[2017-02-06] MEDS: ACCU-CHEK XX SCH (02:00)
[2017-02-06 02:30] VITALS: BP 110/80; PULSE 105; RESP 18
[2017-02-06 06:31] LABS: BASOPHILS % 0.2 % (0.0-2.0); EOSINOPHILS # 0.3 10^3/ul (0.0-0.5); EOSINOPHILS % 3.1 % (0.0-7.0); HEMATOCRIT 24.3 % (42.0-52.0); HEMOGLOBIN 8.1 g/dl (14.0-18.0); LYMPHOCYTES # 1.9 10^3/ul (0.8-2.9); LYMPHOCYTES % 22.5 % (15.0-51.0); MEAN CORPUSCULAR HEMOGLOBIN 30.6 pg (29.0-33.0); MEAN CORPUSCULAR HGB CONC 33.3 g/dl (32.0-37.0); MEAN CORPUSCULAR VOLUME 91.7 fl (82.0-101.0); MEAN PLATELET VOLUME 11.9 fl (7.4-10.4); MONOCYTE # 0.6 10^3/ul (0.3-0.9); MONOCYTES % 6.8 % (0.0-11.0); NEUTROPHIL # 5.5 10^3/ul (1.6-7.5); NEUTROPHILS % 66.4 % (39.0-77.0); PLATELET COUNT 143 10^3/UL (140-415); RED BLOOD COUNT 2.65 10^6/ul (4.70-6.10); RED CELL DISTRIBUTION WIDTH 12.2 % (11.5-14.5); WHITE BLOOD COUNT 8.3 10^3/ul (4.8-10.8)
[2017-02-06 07:20] LABS: CALCIUM 8.7 mg/dl (8.4-10.2); CREATININE 0.75 mg/dl (0.61-1.24); POTASSIUM 3.2 mmol/L (3.5-5.1)
[2017-02-06] MEDS: INSULIN ASPART [NOVOLOG] 3 ML PEN SC SCH ×7 (07:50→20:10)
[2017-02-06] MEDS: IPRATROPIUM (NEB) 0.5 MG/2.5 ML AMP HHN SCH ×4 (08:00→20:27)
[2017-02-06] MEDS: LEVALBUTEROL (NEB) 0.63 MG/3 ML AMP HHN SCH ×4 (08:00→20:27)
[2017-02-06 08:27] VITALS: BP 109/63; RESP 18
[2017-02-06] MEDS: ASPIRIN (EC) 81 MG TAB PO SCH (08:45)
[2017-02-06] MEDS: LISINOPRIL 5 MG TAB PO SCH (08:46)
[2017-02-06] MEDS: INSULIN GLARGINE [LANtus] 3 ML PEN SC SCH (08:50)
[2017-02-06] MEDS ORDERED: POTASSIUM CHLORIDE (SR) 20 MEQ TAB PO STA (10:11)
--- NOTE | 2017-02-06 14:33 | PN ---
Date/Time of Note Date/Time of Note DATE: 02/06/17 TIME: 14:30 Assessment/Plan VTE Prophylaxis VTE Prophylaxis Intervention: SCD's Lines/Catheters IV Catheter Type (from Nrsg): Mid Line Assessment/Plan Assessment/Plan 61 yo M with poorly controlled DM, multiple DM related admissions (hyperglycemia ) admitted for DKA which has now resolved PLAN #DM with DKA: DKA resolved -cont current insulin SC regimen -sp DM education -outpatient endo follow up #transaminitis, ADA: resolved #?NSTEMI? does not appear trops have been checked in 3 days . TTE with EF low limit of nl, +DD -on asa. add bb, statin, acei -cardiology to eval for stress test DVT prophx DM diet dc once cleared by cardiology also needs PCP. CM cs placed Subjective 24 Hr Interval Summary Free Text/Dictation states he stopped taking his insulin a year ago because he didn't feel like taking it Exam/Review of Systems Vital Signs Vitals Vital Signs Date Time Temp Pulse Resp B/P Pulse Ox O2 Delivery O2 Flow Rate FiO2 02/06/17 12:41 102 18 94 21 02/06/17 08:27 98.3 109/63 02/03/17 17:30 Room Air Intake and Output 02/05/17 02/05/17 02/06/17 15:00 23:00 07:00 Intake Total 900 ml Output Total 850 ml Balance 50 ml Exam nad no mrg lungs clear abd soft no rashes Results Result Diagram: 02/06/17 0447 02/06/17 0447 Results 24 hrs Laboratory Tests Test 02/05/17 17:19 02/05/17 17:53 02/05/17 20:20 02/06/17 01:59 Bedside Glucose 66 L 164 233 H 215 Test 02/06/17 04:47 02/06/17 08:42 02/06/17 12:36 White Blood Count 8.3 # Red Blood Count 2.65 L Hemoglobin 8.1 L Hematocrit 24.3 L Mean Corpuscular Volume 91.7 Mean Corpuscular Hemoglobin 30.6 Mean Corpuscular Hemoglobin Concent 33.3 Red Cell Distribution Width 12.2 Platelet Count 143 Mean Platelet Volume 11.9 H Neutrophils % 66.4 Lymphocytes % 22.5 Monocytes % 6.8 Eosinophils % 3.1 Basophils % 0.2 Nucleated Red Blood Cells % 0.0 Neutrophils # 5.5 Lymphocytes # 1.9 Monocytes # 0.6 Eosinophils # 0.3 Basophils # 0.0 Nucleated Red Blood Cells # 0.0 Sodium Level 141 Potassium Level 3.2 L Chloride Level 107 Carbon Dioxide Level 27 Anion Gap 10 Blood Urea Nitrogen 15 Creatinine 0.75 Glucose Level 180 Calcium Level 8.7 Troponin I 0.135 *H Bedside Glucose 180 210 Medications Medications Current Medications Ondansetron HCl (Zofran Inj) 4 mg Q6H PRN IV NAUSEA AND/OR VOMITING; Start at 07:30 Morphine Sulfate (morphine) 2 mg Q4H PRN IV PAIN LEVEL 7-10; Start 02/02/17 at 07:30 Aspirin (Halfprin) 81 mg DAILY PO Last administered on 02/06/17t 08:45; Admin Dose 81 MG; Start 02/02/17 at 09:00 Miscellaneous Information 1 ea NOTE XX ; Start 02/03/17 at 12:00 Glucose (Glutose) 15 gm Q15M PRN PO DECREASED GLUCOSE; Start 02/03/17 at 12:00 Glucose (Glutose) 22.5 gm Q15M PRN PO DECREASED GLUCOSE; Start 02/03/17 at 12: 00 Dextrose (D50w Syringe) 25 ml Q15M PRN IV DECREASED GLUCOSE; Start 02/03/17 at 12:00 Dextrose (D50w Syringe) 50 ml Q15M PRN IV DECREASED GLUCOSE; Start 02/03/17 at 12:00 Glucagon (Glucagen) 1 mg Q15M PRN IM DECREASED GLUCOSE; Start 02/03/17 at 12: 00 Glucose (Glutose) 15 gm Q15M PRN BUCCAL DECREASED GLUCOSE; Start 02/03/17 at 12:00 Diagnostic Test (Pha) (Accu-Chek) 1 ea 02 XX ; Start 02/04/17 at 02:30 Insulin Glargine (Lantus) 42 unit DAILY@08 SC Last administered on 02/06/17t 08:50; Admin Dose 42 UNIT; Start 02/05/17 at 08:00 Diagnostic Test (Pha) (Accu-Chek) 1 ea 02 XX ; Start 02/05/17 at 02:00 Influenza Virus Vaccine (Fluzone) 0.5 ml ONCE ONCE IM* ; Start 02/09/17 at 09: 00; Stop 02/09/17 at 09:01 Carvedilol (Coreg) 3.125 mg BID PO Last administered on 02/06/17 08:46; Admin Dose 3.125 MG; Start 02/05/17 at 13:30 Lisinopril (Zestril) 2.5 mg DAILY PO Last administered on 02/06/17 08:46; Admin Dose 2.5 MG; Start 02/05/17 at 13:30 Atorvastatin Calcium (Lipitor) 40 mg HS PO Last administered on 02/05/17 20: 41; Admin Dose 40 MG; Start 02/05/17 at 21:00 RUPAL CARR MD Feb 06, 2017 14:33
[2017-02-06 14:37] LABS: MICROALBUMIN 4.3 mg/dL
--- NOTE | 2017-02-06 14:59 | CONS ---
Date/Time of Note Date/Time of Note DATE: 02/06/17 TIME: 14:53 Assessment/Plan Assessment/Plan Chief Complaint/Hosp Course NSTEMI: Type II in setting of DKA and renal failure. EF 50% by echo. No active symptoms. Will need risk stratification with stress testing. He is undecided if or when he wants it to be done. DKA: resolved Renal failure: resolved Uncontrolled DM Med noncompliance -pt to let us know if he wants it inpt or outpt (would be ok either way) -ASA, lipitor -coreg, lisinopril Problems: Consultation Date/Type/Reason Admit Date/Time Date of Consultation: Feb 06, 2017 Type of Consultation: Cardiology Reason for Consultation NSTEMI Referring Provider: RUPAL CARR MD Hx of Present Illness 61 yo M with a h/o DM, who presented with lethargy and confusion and was found to have DKA. He also had renal failure and mild trop elevation to 0.3. The pt was treated for DKA and renal function also recovered. He is otherwise ready to go home. He denies CP, SOB, orthopnea, edema. No prior [place] or cardiac history. He has had DM since the . He is not always compliant with his meds and had stopped taking the insulin as he "was tired of it". He is unsure if he wants a stress test or not or if he wants it inpt or outpt. per HPI Past Medical History per HPI Social History Smoking Status: Never smoker Exam/Review of Systems Vital Signs Vitals Vital Signs Date Time Temp Pulse Resp B/P Pulse Ox O2 Delivery O2 Flow Rate FiO2 02/06/17 12:41 102 18 94 21 02/06/17 08:27 98.3 109/63 02/03/17 17:30 Room Air Intake and Output 02/05/17 02/05/17 02/06/17 15:00 23:00 07:00 Intake Total 900 ml Output Total 850 ml Balance 50 ml Exam Constitutional: alert, oriented Psych: nl mood/affect, no complaints Head: atraumatic, normocephalic Neck: No jvd Respiratory: clear to auscultation, No crackles/rales Cardiovascular: regular rate and rhythm, No edema, No systolic murmur Gastrointestinal: non-tender, soft Neurological: nl mental status, nl speech Results Result Diagram: 02/06/17 0447 02/06/17 0447 Results 24 hrs Laboratory Tests Test 02/05/17 17:19 02/05/17 17:53 02/05/17 20:20 02/06/17 01:59 Bedside Glucose 66 L 164 233 H 215 Test 02/06/17 04:47 02/06/17 08:42 02/06/17 12:36 White Blood Count 8.3 # Red Blood Count 2.65 L Hemoglobin 8.1 L Hematocrit 24.3 L Mean Corpuscular Volume 91.7 Mean Corpuscular Hemoglobin 30.6 Mean Corpuscular Hemoglobin Concent 33.3 Red Cell Distribution Width 12.2 Platelet Count 143 Mean Platelet Volume 11.9 H Neutrophils % 66.4 Lymphocytes % 22.5 Monocytes % 6.8 Eosinophils % 3.1 Basophils % 0.2 Nucleated Red Blood Cells % 0.0 Neutrophils # 5.5 Lymphocytes # 1.9 Monocytes # 0.6 Eosinophils # 0.3 Basophils # 0.0 Nucleated Red Blood Cells # 0.0 Sodium Level 141 Potassium Level 3.2 L Chloride Level 107 Carbon Dioxide Level 27 Anion Gap 10 Blood Urea Nitrogen 15 Creatinine 0.75 Glucose Level 180 Calcium Level 8.7 Troponin I 0.135 *H Bedside Glucose 180 210 Medications Medications Current Medications Ondansetron HCl (Zofran Inj) 4 mg Q6H PRN IV NAUSEA AND/OR VOMITING; Start at 07:30 Morphine Sulfate (morphine) 2 mg Q4H PRN IV PAIN LEVEL 7-10; Start 02/02/17 at 07:30 Aspirin (Halfprin) 81 mg DAILY PO Last administered on 02/06/17t 08:45; Admin Dose 81 MG; Start 02/02/17 at 09:00 Miscellaneous Information 1 ea NOTE XX ; Start 02/03/17 at 12:00 Glucose (Glutose) 15 gm Q15M PRN PO DECREASED GLUCOSE; Start 02/03/17 at 12:00 Glucose (Glutose) 22.5 gm Q15M PRN PO DECREASED GLUCOSE; Start 02/03/17 at 12: 00 Dextrose (D50w Syringe) 25 ml Q15M PRN IV DECREASED GLUCOSE; Start 02/03/17 at 12:00 Dextrose (D50w Syringe) 50 ml Q15M PRN IV DECREASED GLUCOSE; Start 02/03/17 at 12:00 Glucagon (Glucagen) 1 mg Q15M PRN IM DECREASED GLUCOSE; Start 02/03/17 at 12: 00 Glucose (Glutose) 15 gm Q15M PRN BUCCAL DECREASED GLUCOSE; Start 02/03/17 at 12:00 Diagnostic Test (Pha) (Accu-Chek) 1 ea 02 XX ; Start 02/04/17 at 02:30 Insulin Glargine (Lantus) 42 unit DAILY@08 SC Last administered on 02/06/17 08:50; Admin Dose 42 UNIT; Start 02/05/17 at 08:00 Diagnostic Test (Pha) (Accu-Chek) 1 ea 02 XX ; Start 02/05/17 at 02:00 Influenza Virus Vaccine (Fluzone) 0.5 ml ONCE ONCE IM* ; Start 02/09/17 at 09: 00; Stop 02/09/17 at 09:01 Carvedilol (Coreg) 3.125 mg BID PO Last administered on 02/06/17 08:46; Admin Dose 3.125 MG; Start 02/05/17 at 13:30 Lisinopril (Zestril) 2.5 mg DAILY PO Last administered on 02/06/17 08:46; Admin Dose 2.5 MG; Start 02/05/17 at 13:30 Atorvastatin Calcium (Lipitor) 40 mg HS PO Last administered on 02/05/17 20: 41; Admin Dose 40 MG; Start 02/05/17 at 21:00 KASSIE HUA Feb 06, 2017 14:59
[2017-02-06 16:15] VITALS: BP 100/59; RESP 18
[2017-02-06 19:21] VITALS: BP 90/58; RESP 18
[2017-02-06 20:00] VITALS: BP 100/65; RESP 19
[2017-02-06] MEDS: ATORVASTATIN 40 MG TAB PO SCH (20:10)
[2017-02-07] MEDS: LEVALBUTEROL (NEB) 0.63 MG/3 ML AMP HHN SCH ×6 (00:48→20:01)
[2017-02-07] MEDS: IPRATROPIUM (NEB) 0.5 MG/2.5 ML AMP HHN SCH ×6 (00:48→20:01)
[2017-02-07 02:11] VITALS: BP 91/52; RESP 18
[2017-02-07] MEDS: ACCUCHECK 2 AM XX SCH (02:25)
[2017-02-07] MEDS: ACCU-CHEK XX SCH (02:25)
[2017-02-07 05:54] LABS: WHITE BLOOD COUNT 7.2 10^3/ul (4.8-10.8)
[2017-02-07 05:55] LABS: BASOPHILS % 0.4 % (0.0-2.0); EOSINOPHILS # 0.2 10^3/ul (0.0-0.5); EOSINOPHILS % 2.9 % (0.0-7.0); HEMATOCRIT 23.4 % (42.0-52.0); HEMOGLOBIN 7.7 g/dl (14.0-18.0); LYMPHOCYTES # 2.1 10^3/ul (0.8-2.9); LYMPHOCYTES % 29.1 % (15.0-51.0); MEAN CORPUSCULAR HEMOGLOBIN 30.7 pg (29.0-33.0); MEAN CORPUSCULAR HGB CONC 32.9 g/dl (32.0-37.0); MEAN CORPUSCULAR VOLUME 93.2 fl (82.0-101.0); MEAN PLATELET VOLUME 11.4 fl (7.4-10.4); MONOCYTE # 0.6 10^3/ul (0.3-0.9); MONOCYTES % 8.9 % (0.0-11.0); NEUTROPHIL # 3.9 10^3/ul (1.6-7.5); NUCLEATED RED BLOOD CELLS% 0.3 /100WBC (0.0-0.0); PLATELET COUNT 174 10^3/UL (140-415); RED BLOOD COUNT 2.51 10^6/ul (4.70-6.10); RED CELL DISTRIBUTION WIDTH 11.9 % (11.5-14.5)
[2017-02-07 07:05] LABS: CALCIUM 8.7 mg/dl (8.4-10.2); CREATININE 0.74 mg/dl (0.61-1.24); POTASSIUM 3.9 mmol/L (3.5-5.1)
[2017-02-07 07:14] VITALS: BP 98/60; RESP 20
[2017-02-07] MEDS: LISINOPRIL 5 MG TAB PO SCH (09:00)
[2017-02-07] MEDS: ASPIRIN (EC) 81 MG TAB PO SCH (09:11)
[2017-02-07] MEDS: INSULIN ASPART [NOVOLOG] 3 ML PEN SC SCH ×6 (09:16→17:49)
[2017-02-07] MEDS: INSULIN GLARGINE [LANtus] 3 ML PEN SC SCH (09:16)
--- NOTE | 2017-02-07 10:54 | CONS ---
Date/Time of Note Date/Time of Note DATE: 02/07/17 TIME: 10:52 Assessment/Plan Assessment/Plan Chief Complaint/Hosp Course NSTEMI: Type II in setting of DKA and renal failure. EF 50% by echo. No active symptoms. Will need risk stratification with stress testing. Does not want it done during this hospitalization. DKA: resolved Renal failure: resolved Uncontrolled DM Med noncompliance -should have outpt f/u with stress testing -ASA, lipitor -coreg, lisinopril Problems: Consultation Date/Type/Reason Admit Date/Time Feb 02, 2017 at 09:27 Initial Consult Date 02/06/17 Type of Consultation: Cardiology Referring Provider: RUPAL CARR MD 24 HR Interval Summary Free Text/Dictation No o/n events. No chest pain or SOB. Does not want inpt stress testing Exam/Review of Systems Vital Signs Vitals Vital Signs Date Time Temp Pulse Resp B/P Pulse Ox O2 Delivery O2 Flow Rate FiO2 02/07/17 08:44 78 16 95 21 02/07/17 07:14 99.3 98/60 02/06/17 20:00 Room Air Intake and Output 02/06/17 02/06/17 02/07/17 15:00 23:00 07:00 Intake Total 840 ml 500 ml Output Total 700 ml 750 ml Balance 140 ml -250 ml Exam Constitutional: alert, oriented Psych: nl mood/affect, no complaints Head: atraumatic, normocephalic Neck: No jvd Respiratory: clear to auscultation, No crackles/rales Cardiovascular: regular rate and rhythm, No edema Gastrointestinal: non-tender, soft Neurological: nl mental status, nl speech, nl strength Results Result Diagram: 02/07/17 0529 02/07/17 0529 Results 24 hrs Laboratory Tests Test 02/06/17 12:36 02/06/17 17:40 02/06/17 20:03 02/07/17 02:25 Bedside Glucose 210 101 146 177 Test 02/07/17 05:29 02/07/17 09:09 White Blood Count 7.2 Red Blood Count 2.51 L Hemoglobin 7.7 L Hematocrit 23.4 L Mean Corpuscular Volume 93.2 Mean Corpuscular Hemoglobin 30.7 Mean Corpuscular Hemoglobin Concent 32.9 Red Cell Distribution Width 11.9 Platelet Count 174 # Mean Platelet Volume 11.4 H Neutrophils % 54.0 Lymphocytes % 29.1 Monocytes % 8.9 Eosinophils % 2.9 Basophils % 0.4 Nucleated Red Blood Cells % 0.3 H Neutrophils # 3.9 Lymphocytes # 2.1 Monocytes # 0.6 Eosinophils # 0.2 Basophils # 0.0 Nucleated Red Blood Cells # 0.0 Sodium Level 140 Potassium Level 3.9 Chloride Level 106 Carbon Dioxide Level 26 Anion Gap 12 Blood Urea Nitrogen 15 Creatinine 0.74 Glucose Level 172 Calcium Level 8.7 Bedside Glucose 191 Medications Medications Current Medications Ondansetron HCl (Zofran Inj) 4 mg Q6H PRN IV NAUSEA AND/OR VOMITING; Start at 07:30 Morphine Sulfate (morphine) 2 mg Q4H PRN IV PAIN LEVEL 7-10; Start 02/02/17 at 07:30 Aspirin (Halfprin) 81 mg DAILY PO Last administered on 02/07/17 09:11; Admin Dose 81 MG; Start 02/02/17 at 09:00 Miscellaneous Information 1 ea NOTE XX ; Start 02/03/17 at 12:00 Glucose (Glutose) 15 gm Q15M PRN PO DECREASED GLUCOSE; Start 02/03/17 at 12:00 Glucose (Glutose) 22.5 gm Q15M PRN PO DECREASED GLUCOSE; Start 02/03/17 at 12: 00 Dextrose (D50w Syringe) 25 ml Q15M PRN IV DECREASED GLUCOSE; Start 02/03/17 at 12:00 Dextrose (D50w Syringe) 50 ml Q15M PRN IV DECREASED GLUCOSE; Start 02/03/17 at 12:00 Glucagon (Glucagen) 1 mg Q15M PRN IM DECREASED GLUCOSE; Start 02/03/17 at 12: 00 Glucose (Glutose) 15 gm Q15M PRN BUCCAL DECREASED GLUCOSE; Start 02/03/17 at 12:00 Diagnostic Test (Pha) (Accu-Chek) 1 ea 02 XX Last administered on 02/07/17 02 :25; Admin Dose 1 EA; Start 02/04/17 at 02:30 Insulin Glargine (Lantus) 42 unit DAILY@08 SC Last administered on 02/07/17 09:16; Admin Dose 42 UNIT; Start 02/05/17 at 08:00 Diagnostic Test (Pha) (Accu-Chek) 1 ea 02 XX Last administered on 02/07/17 02 :25; Admin Dose 1 EA; Start 02/05/17 at 02:00 Influenza Virus Vaccine (Fluzone) 0.5 ml ONCE ONCE IM* ; Start 02/09/17 at 09: 00; Stop 02/09/17 at 09:01 Carvedilol (Coreg) 3.125 mg BID PO Last administered on 02/06/17 08:46; Admin Dose 3.125 MG; Start 02/05/17 at 13:30 Lisinopril (Zestril) 2.5 mg DAILY PO Last administered on 02/06/17 08:46; Admin Dose 2.5 MG; Start 02/05/17 at 13:30 Atorvastatin Calcium (Lipitor) 40 mg HS PO Last administered on 02/06/17 20: 10; Admin Dose 40 MG; Start 02/05/17 at 21:00 KASSIE HUA Feb 07, 2017 10:54
[2017-02-07] MEDS ORDERED: LISI-313 PO (11:26)
[2017-02-07] MEDS ORDERED: ASPI-664 PO (11:26)
[2017-02-07] MEDS ORDERED: NOVO3I SC (11:26)
[2017-02-07] MEDS ORDERED: CARV3.1260 PO (11:26)
[2017-02-07] MEDS ORDERED: ATOR40TA68 PO (11:26)
[2017-02-07] MEDS ORDERED: LANT3I SC (11:26)
--- NOTE | 2017-02-07 11:27 | DS ---
Date/Time of Note Date/Time of Note DATE: 02/07/17 TIME: 11:26 Discharge Summary Admission/Discharge Info Admit Date/Time Feb 02, 2017 at 09:27 Discharge Date/Time Discharge Diagnosis DKA, DM2 with poor control, NSTEMI Patient Condition: Stable Consults cardiology Procedures a1c 13.7 12.22 TTE Conclusions 1. Lower limits of normal systolic function. Normal left ventricular cavity size. Mild concentric left ventricular hypertrophy. Ejection fraction is visually estimated at 50 %. Abnormal Diastolic Function. 2. Normal right ventricular size. Normal right ventricular systolic function. 3. The left atrium is normal in size. 4. The right atrium is normal in size. 5. No significant valvular stenosis or regurgitation seen. 6. Normal pericardium with no significant pericardial effusion. trop max 0.337 Hx of Present Illness This is a 61-year-old male with a history of insulin-dependent diabetes who presented to the ER for generalized weakness and altered mentation. Symptoms have been progressively getting worse over the past several days. Patient lives with his brother who called to have the patient brought to the ER. Patient is somehow lethargic but is able to provide history slowly. He said after he got laid off from work a year and half ago he was not able to obtain his medications because of insurance reason. As a result, he has not been taking any diabetic medication for a year and half. When he presented to the ER, he was even in severe DKA. His blood glucose was over thousand, bicarb < 5, anion gap 46, BUN 39, creatinine 2.52, WBC 27.6 and elevated transaminases. His first troponin was elevated at 0.208. EKG without ST elevation or depression. Patient has been started on a DKA protocol and awaiting admission to ICU. Hospital Course 61 yo M with poorly controlled DM, multiple DM related admissions (hyperglycemia ) admitted for DKA. Started on insulin drip, gap closed. Insulin changed to SubQ. Pt had been off insulin for a year because he had lost his job. Admit labs also notable for NSTEMI with trop max 0.3, likely 2/2 demand from DKA. Cardiology consulted and advised stress test. Pt deferred stress test to outpatient setting. Pt to f/u with PCP and cardiology for further jail Meds Active Scripts Insulin Glargine* (Lantus*) 100 Unit/Ml Soln, 42 UNIT SC DAILY@08 for 1 Day, #1 VIAL Prov:RUPAL CARR MD 02/07/17 Insulin Aspart* (Novolog Insulin Pen*) 100 Unit/Ml Soln, 16 UNIT SC WITH MEALS for 30 Days, #1 VIAL Prov:RUPAL CARR MD 02/07/17 Aspirin* (Aspirin* EC) 81 Mg Tablet.dr, 81 MG PO DAILY for 30 Days, #30 TAB Prov:RUPAL CARR MD 02/07/17 Lisinopril* (Lisinopril*) 5 Mg Tablet, 2.5 MG PO DAILY for 30 Days, #30 TAB Prov:RUPAL CARR MD 02/07/17 Carvedilol* (Carvedilol*) 3.125 Mg Tablet, 3.125 MG PO BID for 30 Days, #30 TAB Prov:RUPAL CARR MD 02/07/17 Atorvastatin* (Atorvastatin*) 40 Mg Tablet, 40 MG PO HS for 30 Days, #30 TAB Prov:RUPAL CARR MD 02/07/17 Discontinued Reported Medications Insulin Glargine,Hum.rec.anlog (Lantus) 100 U/Ml Vial 05/23/11 Follow-up Plan PCP appt Sunday 2pm cardiology pt to ask PCP for endo referral Primary Care Provider Sid Crneshaw Pending Labs Laboratory Tests Test 02/06/17 12:36 02/06/17 17:40 02/06/17 20:03 02/07/17 02:25 Bedside Glucose 210mg/dL (70-220) 101mg/dL (70-220) 146mg/dL (70-220) 177mg/dL (70-220) Test 02/07/17 05:29 02/07/17 09:09 White Blood Count 7.210^3/ul (4.8-10.8) Red Blood Count 2.5110^6/ul (4.70-6.10) Hemoglobin 7.7g/dl (14.0-18.0) Hematocrit 23.4% (42.0-52.0) Mean Corpuscular Volume 93.2fl (82.0-101.0) Mean Corpuscular Hemoglobin 30.7pg (29.0-33.0) Mean Corpuscular Hemoglobin Concent 32.9g/dl (32.0-37.0) Red Cell Distribution Width 11.9% (11.5-14.5) Platelet Count 09158^3/UL (140-415) Mean Platelet Volume 11.4fl (7.4-10.4) Neutrophils % 54.0% (39.0-77.0) Lymphocytes % 29.1% (15.0-51.0) Monocytes % 8.9% (0.0-11.0) Eosinophils % 2.9% (0.0-7.0) Basophils % 0.4% (0.0-2.0) Nucleated Red Blood Cells % 0.3/100WBC (0.0-0.0) Neutrophils # 3.910^3/ul (1.6-7.5) Lymphocytes # 2.110^3/ul (0.8-2.9) Monocytes # 0.610^3/ul (0.3-0.9) Eosinophils # 0.210^3/ul (0.0-0.5) Basophils # 0.010^3/ul (0.0-0.1) Nucleated Red Blood Cells # 0.010^3/ul (0.0-0.0) Sodium Level 140mmol/L (135-144) Potassium Level 3.9mmol/L (3.5-5.1) Chloride Level 106mmol/L (97-110) Carbon Dioxide Level 26mmol/L (21-31) Anion Gap 12 (8-16) Blood Urea Nitrogen 15mg/dl (7-20) Creatinine 0.74mg/dl (0.61-1.24) Glucose Level 172mg/dl (70-220) Calcium Level 8.7mg/dl (8.4-10.2) Bedside Glucose 191mg/dL (70-220) Copies To: CC: KASSIE HUA ELLEN MD Feb 07, 2017 11:27
--- NOTE | 2017-02-07 11:54 | PDOCDIS ---
Discharge Instructions DIAGNOSIS Discharge Diagnosis DKA, DM2 with poor control, NSTEMI CONDITION Patient Condition: Stable HOME CARE INSTRUCTIONS: Special Diet: Carb Controlled FOLLOW UP/APPOINTMENTS Follow-up Plan Check your blood sugars four times daily (upon waking and before all meals) and bring the results to your appointment with your new primary care doctor on Sunday PCP appt Sunday 2pm Dr Sid Crenshaw [id number] [place] [address] Phone Number Please follow up with the [facility] network within 1 week to schedule your stress test. If you have any chest pain or shortness of breath in the meantime, call [address] Tillman Office Address [address] [place] [address] Office Ask your primary care doctor, Dr Crenshaw, if he would like to refer you to an advance scout/medical certification specialist. RUPAL CARR MD Feb 07, 2017 11:54
[2017-02-07 14:45] VITALS: BP 97/54; RESP 19
[2017-02-07 19:14] VITALS: BP 103/67; RESP 20
[2017-02-09] MEDS ORDERED: INFLUENZA VIRUS VACCINE 0.5 ML (DISPENSING) IM* ONE (09:00)
== END 2017-02-07 20:45 | disposition home or self-care (01) | DRG 637 ==
LOC: E/R 23:40 → ICU 02-02 09:27 → MS4 02-03 16:56 → MS1 02-05 17:11
PROVIDERS: ADMIT Internal Medicine; ATTEND Internal Medicine
DX: E11.10 Type 2 diabetes mellitus with ketoacidosis without coma (principal); G93.41 Metabolic encephalopathy; I21.A1 Myocardial infarction type 2; N17.9 Acute kidney failure, unspecified; E87.0 Hyperosmolality and hypernatremia; I24.8 Other forms of acute ischemic heart disease; E87.2 Acidosis; R65.10 Systemic inflammatory response syndrome (SIRS) of non-infectious origin without acute organ dysfunction; E78.5 Hyperlipidemia, unspecified; Z59.8 Other problems related to housing and economic circumstances; R74.0 Nonspecific elevation of levels of transaminase and lactic acid dehydrogenase [LDH]; Z91.14 Patient's other noncompliance with medication regimen; Z56.0 Unemployment, unspecified
CPT/HCPCS: 36415; 36600; 70450; 71010; 80048; 80053; 80061; 80306; 81001; 82043; 82550; 82553; 82803; 82947; 82962; 83036; 83605; 83735; 84100; 84443; 84484; 85025; 85610; 85730; 87040; 87081; 87086; 93005; 93306; 94640; 94664; 96365; 96366; 96368; 96375; J0692; J1815; J2185; J2405; J3370; J3480; J7030; J7042; J7050; J7070; J7120